=== PATIENT | male | born 1975 ===

== ENCOUNTER 2020-06-29 06:04 | Day surgery (SDC) | payer MEDICARE, SELFPAY ==
[2020-06-28 09:02] VITALS: BMI 38.2
[2020-06-28 11:45] VITALS: BMI 37.9
--- NOTE | 2020-06-28 13:53 | HO.ANESPROP2 ---
Documented by User: Maya Andrade 06/28/20 13:56 HPI - Anesthesia Eval Consult details Narrative: 45yo M for L Inguinal Hernia Repair PMFSH Past Medical History Medical History Allergic rhinitis Anxiety Chronic pain Fatty liver GERD (gastroesophageal reflux disease) High cholesterol HTN (hypertension) Liver hemangioma Obesity Opioid dependence Peripheral neuropathic pain Surgical History Surgical History History of back surgery Hx of hernia repair Hx of total shoulder replacement Social History Social History Advance Directives: No Advance Directives Information Provided: No Advance Directives on File: No Meds Allergies Allergy/AdvReac Type Severity Reaction Status Date / Time Iodinated Contrast Media Allergy Severe ANAPHYLAXIS Verified 06/29/20 06:28 [IV CONTRAST] ivp dye Allergy Severe Anaphylaxis Uncoded 06/28/20 11:56 Home Medications Medication Instructions Recorded Confirmed Type albuterol sulfate [Ventolin HFA] 2 puff INHALATION QID PRN 06/28/20 06/28/20 History buprenorphine-naloxone [Suboxone] 2 tab SUBLINGUAL DAILY 06/28/20 06/28/20 History docusate sodium [Colace] 100 mg PO BID 06/28/20 06/28/20 History hydrochlorothiazide 25 mg PO DAILY 06/28/20 06/28/20 History mometasone 2 spray INTRANASAL DAILY 06/28/20 06/28/20 History pravastatin 40 mg PO BEDTIME 06/28/20 06/28/20 History pregabalin [Lyrica] 75 mg PO BID 06/28/20 06/28/20 History trazodone 50 mg PO BEDTIME 06/28/20 06/28/20 History oxycodone 5 mg PO PRN 06/29/20 History Exam Exam Date and Time: June 28, 2020 1353 Height,Weight and Vital Signs: Height 5 ft 6 in Weight 106.594 kg Pertinent Lab Results Pertinent Lab Results: Laboratory Tests 10/14/19 10/14/19 09:58 09:58 WBC 6.7 Hgb 15.2 Hct 44.7 Plt Count 166 Sodium 141 Potassium 4.3 Chloride 103 BUN 14 Creatinine 1.03 Assessment and Plan Assessment Anesthesia Assessment: Chart Reviewed Documented by User: Whitney Randall 06/29/20 08:00 PMFSH Past Medical History Medical History Allergic rhinitis Anxiety Chronic pain Fatty liver GERD (gastroesophageal reflux disease) High cholesterol HTN (hypertension) Liver hemangioma Obesity Opioid dependence Peripheral neuropathic pain Surgical History Surgical History History of back surgery Hx of hernia repair Hx of total shoulder replacement Social History Social History Advance Directives: No Advance Directives Information Provided: No Advance Directives on File: No Meds Allergies Allergy/AdvReac Type Severity Reaction Status Date / Time Iodinated Contrast Media Allergy Severe ANAPHYLAXIS Verified 06/29/20 06:28 [IV CONTRAST] ivp dye Allergy Severe Anaphylaxis Uncoded 06/28/20 11:56 Home Medications Medication Instructions Recorded Confirmed Type albuterol sulfate [Ventolin HFA] 2 puff INHALATION QID PRN 06/28/20 06/28/20 History buprenorphine-naloxone [Suboxone] 2 tab SUBLINGUAL DAILY 06/28/20 06/28/20 History docusate sodium [Colace] 100 mg PO BID 06/28/20 06/28/20 History hydrochlorothiazide 25 mg PO DAILY 06/28/20 06/28/20 History mometasone 2 spray INTRANASAL DAILY 06/28/20 06/28/20 History pravastatin 40 mg PO BEDTIME 06/28/20 06/28/20 History pregabalin [Lyrica] 75 mg PO BID 06/28/20 06/28/20 History trazodone 50 mg PO BEDTIME 06/28/20 06/28/20 History oxycodone 5 mg PO PRN 06/29/20 History Exam Airway Mallampati Class: II TM Dist: >3cm Neck ROM: Full Loose/Missing/Broken Teeth: Yes Heart: RRR Lungs: cta Assessment and Plan Assessment Anesthesia Assessment: Anesthesia Plan Discussed and Chart Reviewed Final Anesthetic Review NPO: Yes ASA Class: II Final Preanesthetic Review: No Changes in Pt Med Stat, Meds/Allgs Chart Reviewed, Consent Obtained/Reviewed and Anes Risks/Benef Reviewed Patient Risk: Low Procedure Risk: Low Assessment/Block/Sedation in SS: Assess/Block/Sedation-SS Anesthetic Plan Anesthetic Plan: GA Disposition: Standard PACU
[2020-06-29] VITALS (10 sets, daily range): BP systolic 76–138; BP diastolic 44–79; PULSE 70–91; RESP 15–18; TEMP 36.2–37; O2SAT 93–98
[2020-06-29] MEDS: Lactated Ringers 1,000 ML 100 ML IVCONT (06:44)
[2020-06-29] MEDS: ceFAZolin Sodium/Dextrose,Iso 2 GM/50 ML PIGGYBACK IV (06:44)
--- NOTE | 2020-06-29 08:22 | P.BOP_ITS ---
Brief Operative Note Date of procedure: 06/29/20 Pre-op diagnosis: left inguinal hernia Post-op diagnosis: same Procedure: repair of left inguinal hernia w/ mesh Implants: mesh Surgeon: Jose Rafael Reyez MD Anesthesia: GLMA Foreign Service Teacher: Sherley Orellana Estimated blood loss (mL): 5 Pathology: none sent Condition: stable Disposition: PACU
[2020-06-29] MEDS: Acetaminophen 325 MG TABLET 650 MG PO (08:50)
[2020-06-29] MEDS: oxyCODONE HCl Immed Release 5 MG TABLET 10 MG PO (08:51)
--- NOTE | 2020-06-29 09:00 | OP_ITS ---
SURGEON: Jose Rafael Reyez MD INDICATIONS: The patient is a 45-year-old male with note of reducible mass in the left groin consistent with an inguinal hernia. In view of symptoms, he wanted to proceed with repair. He understood technique of repair with mesh. He is aware of the risks, benefits, and alternatives. PREOPERATIVE DIAGNOSIS: Left inguinal hernia. POSTOPERATIVE DIAGNOSIS: Left inguinal hernia, indirect. PROCEDURE PERFORMED: Repair of left inguinal hernia with mesh. ESTIMATED BLOOD LOSS: COMPLICATIONS: ANESTHESIA: ASSISTANTS: Sherley Orellana PA-C. SPECIMENS: DESCRIPTION OF PROCEDURE: He was brought to the operating room, placed supine on the table under general anesthesia via laryngeal mask airway. The left groin was prepped and draped in usual sterile fashion. A surgical time-out was done. The patient received cefazolin 2 g IV preoperatively. The planned line of incision was infiltrated with lidocaine 1%. A short imaginary line from anterior superior iliac spine to the pubic ramus was then used as an incision site. This incision on the skin was made using blade #15, it was carried down to full-thickness skin and subcutaneous fat down to the external oblique aponeurosis. We then proceeded to gently and bluntly dissect the external oblique aponeurosis until we were able to clearly see the external ring. I then proceeded to make incision on the external oblique aponeurosis using blade #15 and it was extended inferomedially to connect with the external ring. The edges of the external oblique aponeurosis were then grasped with hemostats. I bluntly dissected the underside of the aponeurosis to create a plane for our mesh. I then proceeded to bluntly dissect the spermatic cord and its contents using my index finger until I was able to pass a [place] drain around this. The [place] drain was used for traction. Examination of the cord revealed the fat containing hernia on the anteromedial aspect. I bluntly and gently dissected off the rest of the cord contents. I was able to visualize the vas deferens and accompanying vessels. I continued to separate the contents of the sac through the internal ring and this was reduced completely. I reinforced the internal ring with the plug. The plug was secured with Prolene 2-0 sutures to the shelving edge of the inguinal ligament laterally and internal oblique superomedially using the inner leaves. I then reinforced the floor of the canal with keyhole mesh. The tails of the mesh were passed around the cord at the level of the internal ring and was secured together with Prolene 2-0 sutures. I secured the mesh with Prolene 2-0 suture to the pubic ramus inferomedially, the internal oblique laterally as well as the shelving edge of the inguinal ligament laterally. We made certain that we were not catching the ilioinguinal nerve with the sutures. I removed the Daniel drain and observed for hemostasis. Once hemostasis was confirmed, proceeded to then close the external oblique aponeurosis with a running Dexon 2-0 stitch to re-create the external ring. The subcutaneous layer was reapposed with Dexon 3-0 interrupted sutures. Skin closure achieved with Dexon 4-0 subcuticular running stitch. Steri-Strips and dressings were applied. Incision was infiltrated with Marcaine 0.5% for postop analgesia. Steri-Strips and dressings were applied. The procedure was completed. The patient tolerated the procedure well. There were no complications noted. Initial and final counts of sponges and instruments were correct. Estimated blood loss was minimal. The patient was extubated without difficulty and transferred to recovery room with stable vital signs. MD KENN Jiménez/JYOTI / [id number] JEAN CLAUDE
[2020-06-29] MEDS: fentaNYL citrate/PF 100 MCG/2 ML VIAL 50 MCG IVPUSH (09:12)
--- NOTE | 2020-06-29 09:41 | HO.POSTANES ---
Post Anesthesia Evaluation Post Anesthesia Evaluation Vital Signs: Vital Signs Temp Pulse Resp BP Pulse Ox 06/29/20 09:23 98.6 F 81 17 123/74 98 06/29/20 09:15 82 17 127/68 06/29/20 09:12 17 06/29/20 09:00 75 17 120/71 96 06/29/20 08:45 82 18 97/55 L 06/29/20 08:40 70 15 97/55 L 93 06/29/20 08:35 71 18 90/48 L 93 06/29/20 08:34 70 17 105/52 L 06/29/20 08:30 98.6 F 72 16 76/44 L 96 06/29/20 06:23 97.1 F 91 18 138/79 97 Anesthesia: General LMA Mental Status: Awake Pain Control: Satisfactory Nausea/Vomiting: None Hydration: Adequate Anesthesia-Related Issues: No Anes. Related Issues
== END 2020-06-29 10:19 | disposition home or self-care (01) ==
PROVIDERS: PCP Internal Medicine Geriatric Medicine; Visit Provider Surgery
PROC: (CPT 49505; principal; 2020-06-29 07:30)
DX: K40.90 Unilateral inguinal hernia, without obstruction or gangrene, not specified as recurrent (principal); I10 Essential (primary) hypertension; K21.9 Gastro-esophageal reflux disease without esophagitis; K76.0 Fatty (change of) liver, not elsewhere classified; J30.9 Allergic rhinitis, unspecified; E78.00 Pure hypercholesterolemia, unspecified; F11.20 Opioid dependence, uncomplicated; G62.9 Polyneuropathy, unspecified; Z79.899 Other long term (current) drug therapy
CPT/HCPCS: 49505; C1781; J0690; J1100; J1885; J2405; J3010

== ENCOUNTER → 2020-07-12 11:07 | Outpatient (BNVA) | payer MEDICARE, SELFPAY | PROVIDERS: PCP Internal Medicine Geriatric Medicine; Visit Provider Surgery | DX: Z48.815 Encounter for surgical aftercare following surgery on the digestive system (principal) | CPT/HCPCS: 99212 ==

== ENCOUNTER 2020-10-06 16:29 | Outpatient (REF) | payer MEDICARE, SELFPAY | END 2020-10-06 16:30 | disposition home or self-care (01) | LOC: HO.LAB 16:29 | PROVIDERS: Visit Provider Internal Medicine | DX: Z20.822 Contact with and (suspected) exposure to COVID-19 (principal) | CPT/HCPCS: 36415; C9803; U0003 ==

== ENCOUNTER 2020-12-14 08:37 | Outpatient (REF) | payer MEDICARE, SELFPAY ==
--- NOTE | ~2020-12-14 | US_ITS ---
EXAMINATION: US ABDOMEN COMPLETE CLINICAL INFORMATION: Abdominal pain. COMPARISON: Ultrasound abdomen 10/14/2019. CT abdomen and pelvis 12/30/2018. Renal ultrasound 11/04/2018. TECHNIQUE: Real-time imaging of the abdominal viscera. FINDINGS: PANCREAS: Normal. ABDOMINAL AORTA: The proximal, mid, and distal segments are normal in caliber. INFERIOR VENA CAVA: Visualized portions are normal. LIVER: The liver is normal in size. The liver contour is normal. Liver echogenicity is diffusely increased areas are focal areas of decreased echogenicity adjacent to the gallbladder. No focal hepatic lesion. There is no intrahepatic biliary duct dilatation seen. GALLBLADDER: Normal. The gallbladder is physiologically distended without evidence of stones, sludge, polyps, wall thickening or pericholecystic fluid. COMMON BILE DUCT: Normal in caliber measuring 0.3 cm in diameter. RIGHT KIDNEY: Normal. No hydronephrosis. No renal calculi or focal parenchymal lesions. The kidney measures 11.5 cm in maximum dimension. LEFT KIDNEY: The kidney measures 10.7 cm in maximum dimension. 4 mm nonobstructing lower pole calculus. No hydronephrosis. SPLEEN: Normal. The spleen measures 10.7 cm in maximum dimension. FREE FLUID: None. US/US abdomen complete IMPRESSION: -Ultrasound findings suggestive of hepatic steatosis with focal fatty sparing adjacent to the gallbladder. Correlation with liver enzymes recommended. -Nonobstructing 4 mm left renal calculus.
== END 2020-12-14 08:38 | disposition home or self-care (01) ==
LOC: HO.US 08:37
PROVIDERS: PCP Internal Medicine Geriatric Medicine; Visit Provider Internal Medicine Geriatric Medicine
DX: R10.9 Unspecified abdominal pain (principal); Z79.899 Other long term (current) drug therapy
CPT/HCPCS: 76700

== ENCOUNTER 2021-04-12 14:30 | Outpatient (REF) | payer MEDICARE, SELFPAY ==
--- NOTE | ~2021-04-12 | US_ITS ---
EXAMINATION: US pelvic, LIMITED/FOLLOW UP CLINICAL INFORMATION: Lower abdominal pain. History of bilateral inguinal hernia repair. Rule out recurrent hernia. COMPARISON: Previous CT of the abdomen and pelvis December 2018 TECHNIQUE: Grayscale and color imaging of the bilateral inguinal regions using a linear transducer FINDINGS: No hernia is seen. No soft tissue fluid collection is seen. US/US pelvic limited IMPRESSION: No hernia is seen.
== END 2021-04-12 14:31 | disposition home or self-care (01) ==
LOC: HO.US 14:30
PROVIDERS: Visit Provider Nurse Practitioner Primary Care
DX: R10.30 Lower abdominal pain, unspecified (principal); K40.90 Unilateral inguinal hernia, without obstruction or gangrene, not specified as recurrent
CPT/HCPCS: 76857

== ENCOUNTER 2021-10-17 12:06 | Outpatient (REF) | payer MEDICARE, SELFPAY ==
--- NOTE | ~2021-10-17 | XR_ITS ---
EXAMINATION: XR SHOULDER, LEFT CLINICAL INFORMATION: Left shoulder pain. COMPARISON: Most recent left shoulder radiographs dated 06/29/2016. TECHNIQUE: AP, axillary, and scapular Y views of the left shoulder. FINDINGS: Left humeral head arthroplasty in expected anatomic alignment. No acute hardware or osseous fracture. No perihardware lucency to suggest loosening or infection. Resection of the distal clavicle and probable acromioplasty, unchanged. No osseous erosion. No abnormal soft tissue calcification. XR/XR shoulder LT 1V IMPRESSION: Left shoulder arthroplasty without evidence of complication.
== END 2021-10-17 12:07 | disposition home or self-care (01) ==
LOC: HO.HOSX 12:06
PROVIDERS: Visit Provider Orthopaedic Surgery
DX: R20.0 Anesthesia of skin (principal); Z96.612 Presence of left artificial shoulder joint
CPT/HCPCS: 73020; 99202

== ENCOUNTER 2021-10-26 09:33 | Outpatient (REF) | payer MEDICARE, SELFPAY ==
--- NOTE | ~2021-10-26 | XR_ITS ---
EXAMINATION: XR CHEST CLINICAL INFORMATION: SOB. Chest tightness 2-3 months COMPARISON: Chest 06/24/2019 TECHNIQUE: 2 views of the chest were obtained. FINDINGS: No significant abnormality is noted involving the heart, lungs, mediastinum, bony thorax or soft tissues. XR/XR chest 2V IMPRESSION: Unremarkable chest examination.
[2021-10-26 10:33] LABS: Hematocrit 42.3 % (42.0-52.0); Hemoglobin 14.5 g/dl (14.0-18.0); Mean Corpuscular HGB Conc 34.3 g/dl (31.0-36.0); Mean Corpuscular Hemoglobin 28.9 pg (27.0-33.0); Mean Corpuscular Volume 84.4 fL (80.0-98.0); Platelet Count 180 X10*3/uL (160-400); Red Blood Count 5.01 X10*6/uL (4.60-5.80); Red Cell Distribution Width 12.1 % (11.0-16.0); White Blood Count 6.8 X10*3/uL (4.8-10.8)
[2021-10-26 10:45] LABS: Estimated Average Glucose 114 mg/dL; Hemoglobin A1c % 5.6 %
[2021-10-26 11:07] LABS: Alanine Aminotransferase 36 U/L (0-40); Albumin Level 4.5 g/dL (3.5-5.0); Alkaline Phosphatase 81 U/L (39-117); Anion Gap 11 (12-20); Aspartate Amino Transferase 28 U/L (5-37); Bilirubin Direct 0.3 mg/dL (0.0-0.5); Bilirubin Total 0.8 mg/dL (0.0-1.0); Blood Urea Nitrogen 15 mg/dL (9-16); Calcium 9.7 mg/dL (8.4-10.2); Carbon Dioxide 32 mmol/L (22-29); Chloride 98 mmol/L (96-108); Cholesterol 198 mg/dL; Estimated Glomerular Filt Rate > 60; Glucose Random 99 mg/dL (60-115); HDL Cholesterol 34 mg/dL; LDL Cholesterol Calculated 136 mg/dl; Potassium 4.4 mmol/L (3.3-5.1); Sodium 137 mmol/L (135-145); Total Protein 7.6 g/dL (6.5-8.0); Triglycerides 141 mg/dL
== END 2021-10-26 09:34 | disposition home or self-care (01) ==
LOC: HO.LAB 09:33
PROVIDERS: PCP Internal Medicine Geriatric Medicine; Visit Provider Internal Medicine Geriatric Medicine
DX: E78.00 Pure hypercholesterolemia, unspecified (principal); R06.02 Shortness of breath; R73.9 Hyperglycemia, unspecified
CPT/HCPCS: 36415; 71046; 80048; 80061; 80076; 83036; 85027

== ENCOUNTER 2021-11-11 07:06 | Day surgery (SDC) | payer MEDICARE, SELFPAY ==
[2021-11-11 07:41] VITALS: BP 147/84; PULSE 84; RESP 18; TEMP 36.2; O2SAT 95; BMI 38.2
[2021-11-11] MEDS: Lactated Ringers 1,000 ML 80 ML IVCONT (07:45)
--- NOTE | 2021-11-11 08:45 | HO.ANESPROP2 ---
HPI - Anesthesia Eval Consult details Narrative: 46 M for EGD and colonoscopy REPLACED BY [facility] Active Problems Active Problems: All Active Problems (Updated 11/07/21 @ 10:38 by Renetta Westbrook RN) History of hernia repair (Acute) Left arm numbness (Acute) Status post left shoulder hemiarthroplasty (Acute) Left inguinal hernia (Acute) Past Medical History Medical History (Updated 11/07/21 @ 10:38 by Renetta Westbrook RN) Allergic rhinitis Anxiety Asthma Chronic pain Fatty liver GERD (gastroesophageal reflux disease) High cholesterol History of opioid abuse HTN (hypertension) Insomnia Left inguinal hernia Liver hemangioma Obesity Opioid dependence Peripheral neuropathic pain Family History Family history of problems with anesthesia: No Surgical History Surgical History (Updated 11/07/21 @ 10:35 by Renetta Westbrook RN) History of back surgery History of left inguinal hernia repair Hx of hernia repair Hx of total shoulder replacement History of Problems with Anesthesia: No Social History Social History Patient Tobacco Use Status: Never used Tobacco Use of substances other than those prescribed or required for medical reasons: No Are you DNR?: No Advance Directives: No Advance Directives Information Provided: Yes Nutrition Risks: No Nutritional Risk Meds Allergies Allergy/AdvReac Type Severity Reaction Status Date / Time Iodinated Contrast Media Allergy Severe ANAPHYLAXIS Verified 11/07/21 10:36 [IV CONTRAST] ivp dye Allergy Severe Anaphylaxis Uncoded 11/07/21 10:36 Home Medications Medication Instructions Recorded Confirmed Last Taken Type albuterol sulfate 90 mcg/actuation 2 puff INHALATION QID PRN 06/28/20 11/07/21 Unknown History aerosol inhaler (Ventolin HFA) buprenorphine 8 mg-naloxone 2 mg 2 tab SUBLINGUAL DAILY 06/28/20 11/07/21 Unknown History sublingual tablet docusate sodium 100 mg capsule 100 mg PO BID 06/28/20 11/07/21 Unknown History (Colace) hydrochlorothiazide 25 mg tablet 25 mg PO DAILY 06/28/20 11/07/21 Unknown History mometasone 50 mcg/actuation nasal 2 spray INTRANASAL DAILY 06/28/20 11/07/21 Unknown History spray pravastatin 40 mg tablet 40 mg PO BEDTIME 06/28/20 11/07/21 Unknown History pregabalin 75 mg capsule (Lyrica) 75 mg PO BID 06/28/20 11/07/21 Unknown History trazodone 50 mg tablet 50 mg PO BEDTIME 06/28/20 11/07/21 Unknown History acetaminophen 650 mg 2 tab PO Q8H PRN 11/07/21 11/07/21 Unknown History tablet,extended release (Arthritis Pain Relief (acetaminophen) ER) celecoxib 200 mg capsule 1 cap PO DAILY PRN 11/07/21 11/07/21 Unknown History duloxetine 30 mg capsule,delayed 1 cap PO DAILY 11/07/21 11/07/21 Unknown History release fluticasone propionate 50 1 spray INTRANASAL DAILY 11/07/21 11/07/21 Unknown History mcg/actuation nasal spray,suspension omeprazole 40 mg capsule,delayed 1 cap PO DAILY 11/07/21 11/07/21 Unknown History release Exam Exam Date and Time: November 11, 2021 0845 Height,Weight and Vital Signs: Height 5 ft 7 in Weight 110.677 kg Last Vital Signs Temp 97.1 F 11/11/21 07:41 Pulse 84 11/11/21 07:41 Resp 18 11/11/21 07:41 BP 147/84 H 11/11/21 07:41 Pulse Ox 95 11/11/21 07:41 Airway Mallampati Class: IV TM Dist: >3cm Neck ROM: Full Loose/Missing/Broken Teeth: Yes Heart: rrr Lungs: bl breath sounds Assessment and Plan Assessment Anesthesia Assessment: Anesthesia Plan Discussed and Chart Reviewed Final Anesthetic Review Family History of Problems with Anesthesia: No History of Problems with Anesthesia: No NPO: Yes ASA Class: III Final Preanesthetic Review: No Changes in Pt Med Stat, Meds/Allgs Chart Reviewed, Consent Obtained/Reviewed and Anes Risks/Benef Reviewed Patient Risk: Intermediate Procedure Risk: Intermediate Anesthetic Plan Anesthetic Plan: MAC: Disposition: Standard PACU
--- NOTE | 2021-11-11 09:49 | P.BOP_ITS ---
Brief Operative Note Date of Service: 11/11/21 Pre-op diagnosis: GERD, Screening Post-op diagnosis: other (Normal EGD, Colon polyp) Procedure: EGD, Colonoscopy to the cecum and TI with cold snare polypectomy Surgeon: Yousuf Ivan Anesthesia: MAC Was an Neurology Director used for this Procedure?: No Estimated blood loss (mL): 2.0 Pathology: other (A. Transverse colon polyp) Condition: stable Disposition: PACU
[2021-11-11 09:51] VITALS: BP 103/65; PULSE 83; RESP 17; TEMP 36.8; O2SAT 95
[2021-11-11 10:06] VITALS: BP 104/61; PULSE 72; RESP 17; TEMP 36.8; O2SAT 93
--- NOTE | 2021-11-11 10:59 | OP_ITS ---
SURGEON: Yousuf Ivan MD INDICATIONS: The patient presents for evaluation of gastroesophageal reflux and colorectal cancer screening. Full consent was obtained from him for this, including risks of bleeding and perforation. PREOPERATIVE DIAGNOSIS: POSTOPERATIVE DIAGNOSIS: PROCEDURE PERFORMED: Esophagogastroduodenoscopy and colonoscopy to the cecum, terminal ileum with cold snare polypectomy. ESTIMATED BLOOD LOSS: COMPLICATIONS: ANESTHESIA: Monitored anesthesia care. ASSISTANTS: SPECIMENS: PREOPERATIVE DIAGNOSES: Gastroesophageal reflux disease, colorectal cancer screening. POSTOPERATIVE DIAGNOSES: Gastroesophageal reflux disease, colorectal cancer screening, normal upper endoscopy, colon polyp, internal hemorrhoids. DESCRIPTION OF PROCEDURE: The patient was placed in the left lateral decubitus position. The Olympus video gastroscope was passed in the posterior oropharynx and upper esophagus under direct vision. The scope was passed slowly into the distal esophagus. The gastroesophageal junction appeared normal at 40 cm. There was no sign of any esophagitis nor Latif esophagus. The scope entered into the stomach. There was no appreciable hiatal hernia. The scope was advanced to pylorus and the duodenum was cannulated to the descending portion. The duodenum including the bulb appeared normal without mass or ulceration. The scope was withdrawn back to the stomach. The gastric antrum and body appeared normal with good peristalsis. The scope was retroflexed visualizing the proximal stomach carefully, which appeared normal, without any sign of mass or ulceration. Scope was straightened and withdrawn back in the esophagus. The esophageal mucosa appeared normal. The scope was withdrawn from the patient. He was turned around for colonoscopy. The digital rectal exam revealed no abnormalities. The Olympus video pediatric colonoscope was entered into the rectum and advanced easily to the cecum. Once in the cecum, I did identify normal-appearing cecal pouch with appendiceal orifice and a normal-appearing ileocecal valve. There was transillumination of light deep in the right lower quadrant. The terminal ileum was cannulated and appeared normal. Scope was withdrawn back in the colon. The entire cecum and ileocecal valve appeared normal. The scope was slowly withdrawn assessing all mucosal surfaces carefully. Preparation was excellent. In the transverse colon was an approximately 5 or 6 mm polyp, which was removed with cold snare polypectomy and recovered by suction. The polypectomy site appeared clean, without any sign of residual polyp nor significant bleeding. I did not visualize any other polyps, colitis, nor angiodysplasia. In the rectum, scope was retroflexed visualizing some small internal hemorrhoids, but no other pathology. The rectal mucosa appeared normal. The scope was straightened and withdrawn from the patient. He tolerated both procedures well and was returned to recovery area in stable condition. IMPRESSION: 1. Normal upper endoscopy. 2. Colon polyp, status post cold snare polypectomy. 3. Internal hemorrhoids. PLAN: The results of the Pathology will be checked. If this is a tubular adenoma, I would recommend a followup colonoscopy in 5 years. If it is only hyperplastic, I would recommend a followup colonoscopy in 10 years. He was advised not to use any aspirin and NSAIDs for 1 week. He was advised to continue his omeprazole for his reflux. He will see me on a p.r.n. basis. MD CHANEL Tran/JYOTI / [id number]
== END 2021-11-11 11:06 | disposition home or self-care (01) ==
PROVIDERS: PCP Internal Medicine Geriatric Medicine; Visit Provider Internal Medicine
PROC: (CPT 45385; principal; 2021-11-11 08:30)
DX: Z12.11 Encounter for screening for malignant neoplasm of colon (principal); Z83.71 Family history of colonic polyps; D12.3 Benign neoplasm of transverse colon; K64.8 Other hemorrhoids; K21.9 Gastro-esophageal reflux disease without esophagitis; J45.909 Unspecified asthma, uncomplicated; I10 Essential (primary) hypertension; E78.5 Hyperlipidemia, unspecified; Z79.51 Long term (current) use of inhaled steroids; Z79.899 Other long term (current) drug therapy; F11.20 Opioid dependence, uncomplicated; Z91.041 Radiographic dye allergy status
CPT/HCPCS: 45385; 43235; 88305

== ENCOUNTER 2022-02-07 10:52 | Outpatient (REF) | payer OTHER, SELFPAY ==
--- NOTE | ~2022-02-07 | MR_ITS ---
EXAMINATION: MR CERVICAL SPINE WITHOUT CONTRAST CLINICAL INFORMATION: Left upper extremity weakness. COMPARISON: There are no prior studies available comparison. TECHNIQUE: MRI of the cervical spine was obtained using routine sequences without contrast. FINDINGS: VERTEBRAL BODIES AND PARASPINAL SOFT TISSUES: There is a mild levoscoliosis, and there is mild reversal of the normal cervical lordosis. Intervertebral disc heights are maintained. The vertebral bodies have normal height and contour no fractures are demonstrated. Overall, marrow signal is homogenous. The regional soft tissues are unremarkable. CERVICOMEDULLARY JUNCTION AND VISUALIZED POSTERIOR FOSSA: The craniocervical and posterior fossa structures are normal. Accounting for artifact, spinal cord signal appears normal SPINAL LEVELS: C2-C3: The facet joints appear normal bilaterally. Posterior disc contour is normal. There is no spinal cord compression or central stenosis. The neural foramina are patent bilaterally. C3-C4: The facet joints appear normal. There is a shallow posterior disc protrusion with there is no cord compression or central stenosis. There are uncovertebral osteophytes and there is mild right foraminal narrowing. C4-C5: The facet joints appear normal bilaterally. Posterior disc contour is normal. There is no spinal cord compression or central stenosis. The neural foramina are patent bilaterally. C5-C6: The facet joints appear normal. There is a broad-based posterior disc protrusion which effaces CSF ventral to the spinal cord without cord compression or central stenosis. There is mild left foraminal narrowing. C6-C7: The facet joints appear normal bilaterally. Posterior disc contour is normal. There is no spinal cord compression or central stenosis. The neural foramina are patent bilaterally. C7-T1: The facet joints appear normal bilaterally. Posterior disc contour is normal. There is no spinal cord compression or central stenosis. The neural foramina are patent bilaterally. MR/MR cervical spine wo con IMPRESSION: 1. At C5-C6 there is a posterior disc protrusion without cord compression or central stenosis. There is mild left foraminal narrowing. 2. At C3-C4 there is a shallow posterior disc protrusion without cord compression or central stenosis. There is mild right foraminal narrowing.
== END 2022-02-07 10:53 | disposition home or self-care (01) ==
LOC: HO.MRI 10:52
PROVIDERS: Visit Provider Orthopaedic Surgery
DX: R20.0 Anesthesia of skin (principal)
CPT/HCPCS: 72141

== ENCOUNTER 2022-03-15 09:54 | Outpatient (REF) | payer OTHER, SELFPAY ==
--- NOTE | 2022-03-15 09:57 | EMG_ITS ---
HISTORY OF PRESENT ILLNESS: This is a 46-year-old man with bilateral upper extremity pain, numbness, and tingling with the left being worse than the right. PHYSICAL EXAMINATION: On examination, he is alert, oriented with normal intellectual functions. He has previously had a left carpal tunnel release. No Tinel or Phalen sign. IMPRESSION: Carpal tunnel syndrome. Nerve conduction EMG study: Early carpal tunnel syndrome on the right, otherwise normal study. Normal EMG of the left C5-T1 innervated muscles. MD CYNDY Wilde/JYOTI / [id number]
== END 2022-03-15 09:55 | disposition home or self-care (01) ==
LOC: HO.NEURO 09:54
PROVIDERS: Visit Provider Internal Medicine Geriatric Medicine
DX: M54.10 Radiculopathy, site unspecified (principal); R20.0 Anesthesia of skin
CPT/HCPCS: 95885; 95913

== ENCOUNTER → 2022-05-16 14:52 | Outpatient (BNVA) | payer OTHER, SELFPAY | PROVIDERS: PCP Internal Medicine Geriatric Medicine; Visit Provider Orthopaedic Surgery | DX: G56.01 Carpal tunnel syndrome, right upper limb (principal) | CPT/HCPCS: 99202 ==

== ENCOUNTER 2023-01-02 16:51 | Outpatient (REF) | payer OTHER, SELFPAY ==
--- NOTE | ~2023-01-02 | XR_ITS ---
EXAMINATION: XR ANKLE, RIGHT CLINICAL INFORMATION: Twisted right ankle COMPARISON: Right ankle 03/02/2017 TECHNIQUE: AP, lateral, and mortise views of the right ankle. FINDINGS: There is minimal lateral malleolar soft tissue swelling. Ankle mortise and subtalar joints are normal. The ununited ossification growth center anterior to distal tibia unchanged to 03/02/2017 exam. No acute fracture, dislocation or subluxation seen. XR/XR ankle RT min 3V IMPRESSION: Lateral malleolar soft tissue swelling likely ligamentous injury. No acute fracture or dislocation. 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 It is unchanged to previous right ankle x-ray 03/02/2017.
== END 2023-01-02 16:52 | disposition home or self-care (01) ==
LOC: HO.XRAY 16:51
PROVIDERS: Absent Provider Internal Medicine Geriatric Medicine; PCP Internal Medicine Geriatric Medicine; Visit Provider Family Medicine
DX: M25.571 Pain in right ankle and joints of right foot (principal)
CPT/HCPCS: 73610

== ENCOUNTER 2023-01-20 14:51 | Emergency (ER) | payer OTHER, SELFPAY ==
--- NOTE | ~2023-01-20 | XR_ITS ---
EXAMINATION: XR LUMBOSACRAL SPINE CLINICAL INFORMATION: Pain. Previous surgery. COMPARISON: None available. TECHNIQUE: Three views of the lumbosacral spine. FINDINGS: Bone alignment is normal. No fracture or dislocation. Mild degenerative spondylosis and disc space narrowing from T12-L1 to L2-L3. Paraspinal soft tissues are unremarkable. XR/XR lumbar spine 2-3V IMPRESSION: Degenerative changes of the proximal lumbar spine.
--- NOTE | 2023-01-20 14:59 | ED.GENADULT ---
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 Gabriel with intermittent chronic back pain since then which has been constant since October with no new injury or trauma presents to the ER with worsening back pain. No radiation of pain. No weakness/numbness/tingling of lower extremities. No numbness in the groin. No bowel or bladder incontinence. No fevers or chills. Patient is ambulatory into the emergency room. Patient reports he is taking ibuprofen, Tylenol, baclofen for pain with no relief. He is also on Suboxone. Related Data Home Medications Medication Instructions Recorded Confirmed albuterol sulfate 90 mcg/actuation 2 puff inhalation QID PRN 06/28/20 11/07/21 aerosol inhaler (Ventolin HFA) Shortness Of Breath Or Wheezing buprenorphine 8 mg-naloxone 2 mg 2 tab sublingual DAILY 06/28/20 11/07/21 sublingual tablet docusate sodium 100 mg capsule 100 mg PO BID 06/28/20 11/07/21 (Colace) hydrochlorothiazide 25 mg tablet 25 mg PO DAILY 06/28/20 11/07/21 mometasone 50 mcg/actuation nasal 2 spray intranasal DAILY 06/28/20 11/07/21 spray pravastatin 40 mg tablet 40 mg PO BEDTIME 06/28/20 11/07/21 pregabalin 75 mg capsule (Lyrica) 75 mg PO BID 06/28/20 11/07/21 acetaminophen 650 mg 2 tab PO Q8H PRN Pain 11/07/21 11/07/21 tablet,extended release (Arthritis Pain Relief (acetaminophen) ER) celecoxib 200 mg capsule 1 cap PO DAILY PRN Pain 11/07/21 11/07/21 duloxetine 30 mg capsule,delayed 1 cap PO DAILY 11/07/21 11/07/21 release fluticasone propionate 50 1 spray intranasal DAILY 11/07/21 11/07/21 mcg/actuation nasal spray,suspension omeprazole 40 mg capsule,delayed 1 cap PO DAILY 11/07/21 11/07/21 release Previous Rx's Medication Instructions Recorded cyclobenzaprine 10 mg tablet 10 mg PO TID PRN muscle spasm #15 01/20/23 tabs lidocaine 5 % topical patch 1 patch topical DAILY #30 ea 01/20/23 (Lidoderm) naproxen 500 mg tablet 500 mg PO BID PRN pain #30 tabs 01/20/23 Allergies Allergy/AdvReac Type Severity Reaction Status Date / Time Iodinated Contrast Media Allergy Severe ANAPHYLAXIS Verified 01/20/23 15:02 [IV CONTRAST] ivp dye Allergy Severe Anaphylaxis Uncoded 05/16/22 15:39 Review of Systems Review of Systems: Yes all other systems are reviewed and are negative Constitutional: Constitutional: Reports no additional constitutional complaints, Denies body ache(s), Denies chills, Denies fever(s), Denies headache(s) and Denies weakness Eyes: Eyes: Reports no additional eye complaints and Denies change in vision ENT: Reports system reviewed and no additional complaints, except as documented, Denies dizziness, Denies headache(s), Denies nasal congestion, Denies nasal discharge and Denies neck pain Cardiovascular: Cardiovascular: Reports no additional cardiovascular complaints, Denies chest pain, Denies leg edema and Denies dyspnea Respiratory: Respiratory: Reports no additional respiratory complaints, Denies cough and Denies dyspnea Gastrointestinal: Gastrointestinal: Reports no additional gastrointestinal complaints, Denies abdominal pain, Denies diarrhea, Denies nausea and Denies vomiting Genitourinary: Genitourinary: Denies urinary incontinence Musculoskeletal: Musculoskeletal: Reports no additional musculoskeletal complaints, Reports back pain, Denies arthralgias, Denies joint swelling, Denies neck pain, Denies numbness and Denies tingling Integumentary/Breasts: Skin/Breast: Reports system reviewed and no additional complaints, except as docu and Denies rash Neurologic: Reports system reviewed and no additional complaints, except as documented, Denies dizziness, Denies headache(s), Denies numbness, Denies tingling and Denies weakness [facility] Past Medical History Attestation statement: The following information was validated with the patient. Source: old records reviewed and nursing notes reviewed Medical History Allergic rhinitis Anxiety Asthma Chronic pain Fatty liver GERD (gastroesophageal reflux disease) High cholesterol History of opioid abuse HTN (hypertension) Insomnia Left inguinal hernia Liver hemangioma Obesity Opioid dependence Peripheral neuropathic pain Surgical History History of back surgery History of left inguinal hernia repair Hx of hernia repair Hx of total shoulder replacement Social History Social History Alcohol intake: former Patient Tobacco Use Status: Never used Tobacco Smoked in Last 30 Days: No Use of substances other than those prescribed or required for medical reasons: No Advance Directives: No Advance Directives Information Provided: Yes Current occupational status: disabled 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 Physical Exam ED Vital Signs: Vital Signs - 24 hr 01/20/23 15:00 01/20/23 15:59 Temperature 97 F 98.7 F Pulse Rate 87 80 Respiratory Rate 18 18 Blood Pressure 163/91 H 130/73 Pulse Oximetry 96 95 Oxygen Delivery Method Room Air Room Air BMI result Body Mass Index 40.3 Const General: cooperative, healthy appearing, comfortable and no acute distress Orientation/consciousness: patient oriented x3 Limitations: language barrier HENMT Head: Yes normal to inspection Ears: hearing grossly normal bilaterally Eyes General: appearance normal, both eyes and all related structures Pupils: Equal, round and reactive pupils present Neck Neck: Yes normal visual inspection Chest Chest palpation & inspection: normal inspection of the chest Resp Effort & Inspection: normal respiratory effort Cardio Peripheral pulses: Peripheral pulses 2+ throughout GI Inspection: Yes normal to inspection Palpation (GI): Soft to palpation General: Yes no CVA tenderness Back/Spine/Pelvis Other: Patient tenderness on palpation over the lumbar spine. No step-offs or deformities. Pain is worse with flexion and extension of the lumbar spine Back: no CVA tenderness Thoracic/Lumbar Spine: thoracic and lumbar spine normal to inspection Skin General skin exam: no rashes or lesions noted Neuro General: patient oriented x3 and moves all extremities Cranial nerves: Yes CN's II-XII intact bilaterally, Yes Equal, round and reactive pupils present, Yes Bilaterally intact EOM present, Yes Nystagmus not present and Yes Midline tongue present Cognition (Neuro): normal cognition Gait exam (Neuro): Normal gait present Motor exam (neuro): 5/5 motor strength present throughout Sensory Exam: Normal double simultaneous stimulation for sensation Deep tendon reflexes (DTR's): Right patellar reflex intensity grade: 2+ and Left patellar reflex intensity grade: 2+ Extrem General: Yes normal to inspection, Yes no pedal edema and Yes no calf tenderness Course Course Course Narrative: RME- 47 year old male presents for evaluation of lower back pain. Patient reports his pain has been worse over the last few days. Denies recent injury. He had lumbar surgery in 2011 after an accident. Denies any numbness, tingling, weakness, bladder or bowel issues. No improvement with physical therapy. Plan for x-ray of l spine. Reevaluation(s) Reevaluation #1: X-ray shows degenerative changes. Recommend patient follow up outpatient with his previous back surgeon and trauma primary care and continue physical therapy. Will send patient home with NSAIDs, muscle relaxants and medicated patches. Reviewed worrisome signs and symptoms of when to return to the emergency room. Comfortable plan for discharge home. Medications Administered Discontinued Medications Generic Name Dose Route Start Last Admin Trade Name Freq PRN Reason Stop Dose Admin Ketorolac Tromethamine 60 mg 01/20/23 16:11 01/20/23 16:28 Ketorolac Tromethamine 60 Mg/2 Ml Vial IM 01/20/23 16:12 60 mg ONCE ONE Administration Medical Decision Making Medical Decision Making [facility] Narrative: 47-year-old male here with acute on chronic back pain with no neurological deficits or red flag symptoms Patient with midline tenderness on exam. Will check x-rays Discussed with patient that he will likely need to follow-up with Dr. Jefferson (previous back surgeon) for furthr eval and possible MRI Differential Diagnosis Differential Diagnoses: The differential diagnosis associated with the presentation includes Disc herniation, lumbar radiculopathy Low concern for cauda equina, cord compression, epidural abscess, malignancy, osteomyelitis, renal colic, pyelonephritis, AAA Independent Interpretation I performed an independent interpretation of an: Plain X-Ray Interpretation: Independently reviewed the x-ray and agree with radiologist's report Radiology Impression Discussion of test interpretation with radiology: I have reviewed the radiologist's reading. Radiologist Impression: [address] [address] XRay Report Signed Patient: Jose Carlos Gay MR#: [id number] : 1975 Acct:[id number] Age/Sex: 47 / M ADM Date: 01/20/23 Loc: HO.ED Attending Dr: Ordering Physician: Alonzo Morley Date of Service: 01/20/23 Procedure(s): XR lumbar spine 2-3V Accession Number(s): [id number] cc: Alonzo Morley ~ EXAMINATION: XR LUMBOSACRAL SPINE CLINICAL INFORMATION: Pain. Previous surgery. COMPARISON: None available. TECHNIQUE: Three views of the lumbosacral spine. FINDINGS: Bone alignment is normal. No fracture or dislocation. Mild degenerative spondylosis and disc space narrowing from T12-L1 to L2-L3. Paraspinal soft tissues are unremarkable. XR/XR lumbar spine 2-3V IMPRESSION: Degenerative changes of the proximal lumbar spine. Discharge Plan Discharge Clinical Impression: Lumbar radiculopathy Patient Disposition: Home, Self-Care Instructions: Lumbar Radiculopathy (ED), Lower Back Exercises (ED) Additional Instructions: chacon radiograf?a muestra cambios degenerativos que vienen con la edad. Debe realizar un seguimiento con el paciente ambulatorio de la Dra. Jefferson, as? jose rafael con chacon atenci?n primaria. Es posible que quieran obtener mario resonancia magn?lurdes de chacon espalda. No hacemos resonancias magn?cesilia en la angel de emergencias. Sin levantar objetos pesados ??ni agacharse. Calentar o hielo seg?n sea necesario. Contin?e con freda medicamentos caseros. Estamos agregando algunos medicamentos adicionales para ayudar con el dolor your x-ray shows degenerative changes that come with age. You should follow-up with Dr. Jefferson outpatient as well as her primary care. They may want to obtain an MRI of your back. We do not do MRIs in the emergency room. No heavy lifting or bending. Heat or ice as needed. Continue your home medications. We are adding some additional medications to help with pain. Prescriptions: New cyclobenzaprine 10 mg tablet 10 mg PO TID PRN (Reason: muscle spasm) Qty: 15 0RF lidocaine [Lidoderm] 5 % adhesive patch,medicated 1 patch topical DAILY Qty: 30 0RF Rx Instructions: leave on most painful area for up to 12 hrs naproxen 500 mg tablet 500 mg PO BID PRN (Reason: pain) Qty: 30 0RF No Action pravastatin 40 mg Tablet 40 mg PO BEDTIME docusate sodium [Colace] 100 mg Capsule 100 mg PO BID mometasone 50 mcg/actuation [place],Non-Aerosol 2 spray INTRANASAL DAILY hydrochlorothiazide 25 mg Tablet 25 mg PO DAILY albuterol sulfate [Ventolin HFA] 90 mcg/actuation Hfa Aerosol Inhaler 2 puff INHALATION QID PRN (Reason: Shortness Of Breath Or Wheezing) buprenorphine-naloxone 8-2 mg Tablet, Sublingual 2 tab SUBLINGUAL DAILY pregabalin [Lyrica] 75 mg Capsule 75 mg PO BID omeprazole 40 mg capsule,delayed release(DR/EC) 1 cap PO DAILY acetaminophen [Arthritis Pain Relief (acetam)] 650 mg tablet extended release 2 tab PO Q8H PRN (Reason: Pain) fluticasone propionate 50 mcg/actuation spray,suspension 1 spray intranasal DAILY duloxetine 30 mg capsule,delayed release(DR/EC) 1 cap PO DAILY celecoxib 200 mg capsule 1 cap PO DAILY PRN (Reason: Pain) Referrals: Name,MD Bruno [Primary Care Provider] - 1 week Print Language: Citizen Of [place]
[2023-01-20 15:00] VITALS: BP 163/91; PULSE 87; RESP 18; TEMP 36.1; O2SAT 96; BMI 40.3
[2023-01-20 15:59] VITALS: BP 130/73; PULSE 80; RESP 18; TEMP 37.1; O2SAT 95
--- NOTE | 2023-01-20 16:19 | PC.NURSE ---
Pt resting on stretcher, airway open and patent, no obvious signs of distress, equal chest rise and fall, no difficulty/labored breathing. Pt a&ox4, skin color normal for ethnicity, warm, and dry. Lung sounds clr and equal bilaterally all mejia. No edema noted. Pt complaining of middle low back pain since October that is worsening. Pt able to ambulate. Area is unremarkable.
[2023-01-20] MEDS: Ketorolac Tromethamine 60 MG/2 ML VIAL IM (16:28)
[2023-01-20 17:16] VITALS: BP 128/80; PULSE 73; RESP 16; TEMP 37.4; O2SAT 94
== END 2023-01-20 17:21 | disposition home or self-care (01) ==
PROVIDERS: Emergency Provider Emergency Medicine; PCP Internal Medicine Geriatric Medicine
DX: M54.16 Radiculopathy, lumbar region (principal); I10 Essential (primary) hypertension; E78.5 Hyperlipidemia, unspecified; F11.20 Opioid dependence, uncomplicated; Z79.02 Long term (current) use of antithrombotics/antiplatelets; Z79.899 Other long term (current) drug therapy
CPT/HCPCS: 72100; 96372; 99284; J1885

== ENCOUNTER 2023-03-19 19:12 | Outpatient (REF) | payer OTHER, SELFPAY | END 2023-03-19 19:13 | disposition home or self-care (01) | LOC: HO.HHCLNP 19:12 | PROVIDERS: Visit Provider Internal Medicine | DX: R07.0 Pain in throat (principal) | CPT/HCPCS: 87070 ==

== ENCOUNTER 2023-03-20 11:11 | Emergency (ER) | payer OTHER, SELFPAY ==
[2023-03-20 11:16] VITALS: BP 156/87; PULSE 93; RESP 18; TEMP 36.8; O2SAT 96; BMI 42.0
--- NOTE | 2023-03-20 11:16 | ED_ITS ---
HPI - General Adult General Chief complaint: Ear Problems Stated complaint: L ear pain Time Seen by Provider: 03/20/23 11:22 Source: patient Mode of arrival: ambulatory Limitations: no limitations History of Present Illness HPI narrative: 47 yo male presents to the ER for evaluation of left ear pain for the last 2-3 days. He was given ear drops by his doctor to help soften the wax. He reports last night he did not sleep well due to discomfort and pressure in the left ear. He endorses decreased hearing in that side. No drainage. No URI symptoms. MD complaint: left ear pain and pressure Onset (ago): day(s) (2-3) Location: head Radiation: non-radiation Severity: moderate Quality: aching Pain Consistency: constant Relieving factors: none Exacerbating factors: other (laying on the left side) Associated symptoms: denies other symptoms Treatments prior to arrival: none Related Data Home Medications Medication Instructions Recorded Confirmed albuterol sulfate 90 mcg/actuation 2 puff inhalation QID PRN 06/28/20 11/07/21 aerosol inhaler (Ventolin HFA) Shortness Of Breath Or Wheezing buprenorphine 8 mg-naloxone 2 mg 2 tab sublingual DAILY 06/28/20 11/07/21 sublingual tablet docusate sodium 100 mg capsule 100 mg PO BID 06/28/20 11/07/21 (Colace) hydrochlorothiazide 25 mg tablet 25 mg PO DAILY 06/28/20 11/07/21 mometasone 50 mcg/actuation nasal 2 spray intranasal DAILY 06/28/20 11/07/21 spray pravastatin 40 mg tablet 40 mg PO BEDTIME 06/28/20 11/07/21 pregabalin 75 mg capsule (Lyrica) 75 mg PO BID 06/28/20 11/07/21 acetaminophen 650 mg 2 tab PO Q8H PRN Pain 11/07/21 11/07/21 tablet,extended release (Arthritis Pain Relief (acetaminophen) ER) celecoxib 200 mg capsule 1 cap PO DAILY PRN Pain 11/07/21 11/07/21 duloxetine 30 mg capsule,delayed 1 cap PO DAILY 11/07/21 11/07/21 release fluticasone propionate 50 1 spray intranasal DAILY 11/07/21 11/07/21 mcg/actuation nasal spray,suspension omeprazole 40 mg capsule,delayed 1 cap PO DAILY 11/07/21 11/07/21 release Previous Rx's Medication Instructions Recorded cyclobenzaprine 10 mg tablet 10 mg PO TID PRN muscle spasm #15 01/20/23 tabs lidocaine 5 % topical patch 1 patch topical DAILY #30 ea 01/20/23 (Lidoderm) naproxen 500 mg tablet 500 mg PO BID PRN pain #30 tabs 01/20/23 Allergies Allergy/AdvReac Type Severity Reaction Status Date / Time Iodinated Contrast Media Allergy Severe ANAPHYLAXIS Verified 01/20/23 15:02 [IV CONTRAST] ivp dye Allergy Severe Anaphylaxis Uncoded 05/16/22 15:39 Review of Systems Review of Systems: Yes all other systems are reviewed and are negative [facility] Past Medical History Medical History Allergic rhinitis Anxiety Asthma Chronic pain Fatty liver GERD (gastroesophageal reflux disease) High cholesterol History of opioid abuse HTN (hypertension) Insomnia Left inguinal hernia Liver hemangioma Obesity Opioid dependence Peripheral neuropathic pain Surgical History History of back surgery History of left inguinal hernia repair Hx of hernia repair Hx of total shoulder replacement Social History Social History Alcohol intake: former Patient Tobacco Use Status: Never used Tobacco Advance Directives: No Current occupational status: disabled 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 Oriented X3. No acute distress. HEENT: normal external inspection. right TM normal with small amount of cerumen in right EAC. left EAC impacted with cerumen CVS: Normal heart rate and rhythm. Pulses normal. Respiratory: No respiratory distress. Skin: Skin warm and dry. Normal skin color. Normal skin turgor. No rashes. Extremities: normal inspection x4 Neuro: Oriented X 3. No motor deficit. No sensory deficit. Course Course Course Narrative: This is an RME: Additional HPI, ROS, PE not included below will be deferred to primary provider. Patient is a 47 year old male with a PMH of carpal tunnel of the right wrist presenting with left ear pain and muffled hearing for a few days. Patient reports using drops for his ears yesterday but they are not working. Patient denies being given oral antibiotics. Patient denies fever, chills, night sweats, nausea, vomiting, headache, vision changes, numbness, tingling. On exam, impacted left ear canal. Plan: [facility] Medications Administered Discontinued Medications Generic Name Dose Route Start Last Admin Trade Name Nikolaiq PRN Reason Stop Dose Admin Docusate Sodium 100 mg 03/20/23 11:19 03/20/23 11:35 Docusate Sodium 100 Mg/10 Ml Liquid PO 03/20/23 11:20 100 mg ONCE ONE Administration Procedures Ear Wax Removal Left Ear: Cerumenolytic Used: Colace Results: Re-examined: cerumen removed completely TM Examination: TM(s) intact, normal appearance Ear Canal Exam: atraumatic Patient Tolerated Procedure: well Complications: no problems Technique: ear canal irrigated and ear canal curetted Medical Decision Making Medical Decision Making MDM Narrative: 47 yo male presenting with left ear pain and pressure due to cerumen impaction. successful removal w/ irrigation and curette. symptomatic improvement. TM visualized and was normal, no infection or perforation. stable for d/c home. Differential Diagnosis Differential Diagnoses: The differential diagnosis associated with the presentation includes otitis media, otitis externa, impacted cerumen, TM perforation External Record Review External record reviewed: Prior outpatient labs Prescription Management I considered prescription management with: Antibiotic (however no evidence of inner or outer ear infection) Critical Care Time Critical Care Time Critical Care Time: No Discharge Plan Discharge Clinical Impression: Cerumen impaction Patient Disposition: Home, Self-Care Instructions: Carbamide Peroxide (Into the ear) Additional Instructions: use the prescribed ear drops as directed by your doctor Prescriptions: No Action pravastatin 40 mg Tablet 40 mg PO BEDTIME docusate sodium [Colace] 100 mg Capsule 100 mg PO BID mometasone 50 mcg/actuation [place],Non-Aerosol 2 spray INTRANASAL DAILY hydrochlorothiazide 25 mg Tablet 25 mg PO DAILY albuterol sulfate [Ventolin HFA] 90 mcg/actuation Hfa Aerosol Inhaler 2 puff INHALATION QID PRN (Reason: Shortness Of Breath Or Wheezing) buprenorphine-naloxone 8-2 mg Tablet, Sublingual 2 tab SUBLINGUAL DAILY pregabalin [Lyrica] 75 mg Capsule 75 mg PO BID omeprazole 40 mg capsule,delayed release(DR/EC) 1 cap PO DAILY acetaminophen [Arthritis Pain Relief (acetam)] 650 mg tablet extended release 2 tab PO Q8H PRN (Reason: Pain) fluticasone propionate 50 mcg/actuation spray,suspension 1 spray intranasal DAILY duloxetine 30 mg capsule,delayed release(DR/EC) 1 cap PO DAILY celecoxib 200 mg capsule 1 cap PO DAILY PRN (Reason: Pain) cyclobenzaprine 10 mg tablet 10 mg PO TID PRN (Reason: muscle spasm) Qty: 15 0RF lidocaine [Lidoderm] 5 % adhesive patch,medicated 1 patch topical DAILY Qty: 30 0RF Rx Instructions: leave on most painful area for up to 12 hrs naproxen 500 mg tablet 500 mg PO BID PRN (Reason: pain) Qty: 30 0RF Interventions: ED Discharge Assessment Last Done: 03/20/23 12:04 Discharge Date/Time: 03/20/23 12:04
[2023-03-20] MEDS: Docusate Sodium 100 MG/10 ML LIQUID PO (11:35)
--- NOTE | 2023-03-20 11:40 | PC.NURSE ---
pt medicated per FREDDIE apporx 2mls instilled into left ear canal dwelling for 15 min
== END 2023-03-20 12:04 | disposition home or self-care (01) ==
PROVIDERS: Emergency Provider Emergency Medicine Emergency Medical Services; PCP Internal Medicine Geriatric Medicine
DX: H61.22 Impacted cerumen, left ear (principal); I10 Essential (primary) hypertension; Z79.899 Other long term (current) drug therapy
CPT/HCPCS: 69210; 99282; 99283

== ENCOUNTER 2023-09-19 11:19 | Outpatient (REF) | payer OTHER, SELFPAY ==
--- NOTE | ~2023-09-19 | XR_ITS ---
EXAMINATION: XR KNEE, RIGHT CLINICAL INFORMATION: Reason for Exam Chronic anterior right knee pain COMPARISON: Knee radiographs 06/13/2019 TECHNIQUE: 3 views of the knee FINDINGS: No acute fracture or dislocation. Mild osteoarthritis of the knee with borderline loss of medial compartment joint space unchanged. Trace suprapatellar joint effusion. Soft tissues are unremarkable. XR/XR knee RT 3V IMPRESSION: * No acute osseous abnormality. * Mild degenerative changes of the knee. Trace suprapatellar joint effusion.
== END 2023-09-19 11:20 | disposition home or self-care (01) ==
LOC: HO.XRAY 11:19
PROVIDERS: PCP Internal Medicine Geriatric Medicine; Visit Provider Internal Medicine Geriatric Medicine
DX: M25.561 Pain in right knee (principal)
CPT/HCPCS: 73562

== ENCOUNTER 2023-10-26 09:57 | Outpatient (REF) | payer OTHER, SELFPAY ==
[2023-10-26 11:03] LABS: MANUAL DIFF FLAG NO
[2023-10-26 11:35] LABS: Alanine Aminotransferase 30 U/L (0-40); Albumin Level 4.3 g/dL (3.5-5.0); Alkaline Phosphatase 78 U/L (39-117); Anion Gap 12 (12-20); Aspartate Amino Transferase 31 U/L (5-37); Bilirubin Total 0.6 mg/dL (0.0-1.0); Blood Urea Nitrogen 18 mg/dL (9-16); Calcium 9.4 mg/dL (8.4-10.2); Carbon Dioxide 28 mmol/L (22-29); Chloride 103 mmol/L (96-108); Estimated Glomerular Filt Rate > 60; Glucose Random 93 mg/dL (60-115); Potassium 4.3 mmol/L (3.3-5.1); Sodium 139 mmol/L (135-145); Total Protein 7.8 g/dL (6.5-8.0)
[2023-10-26 12:05] LABS: Basophils Absolute Auto 0.1 X10*3/uL (0.0-0.2); Basophils Percent Auto 0.8 % (0-2); Eosinophils Absolute Auto 0.2 X10*3/uL (0.0-0.4); Hemoglobin 14.4 g/dl (14.0-18.0); Imm Gran Abs Auto 0.05 X10*3/uL (0.00-0.03); Imm Gran Pct Auto 0.8 % (0.0-0.4); Lymphocytes Absolute Auto 1.7 X10*3/uL (1.2-4.9); Lymphocytes Percent Auto 26.1 % (20-40); Mean Corpuscular HGB Conc 33.5 g/dl (31.0-36.0); Mean Corpuscular Hemoglobin 28.7 pg (27.0-33.0); Mean Corpuscular Volume 85.8 fL (80.0-98.0); Mean Platelet Volume 11.2 fL (9.4-12.4); Monocytes Absolute Auto 0.6 X10*3/uL (0.1-1.2); Monocytes Percent Auto 9.9 % (2-11); Neutrophils Absolute Auto 3.8 x10*3/uL (2.0-8.3); Neutrophils Percent Auto 59.4 % (45-73); Platelet Count 194 X10*3/uL (160-400); Red Blood Count 5.01 X10*6/uL (4.60-5.80); Red Cell Distribution Width 12.4 % (11.0-16.0); White Blood Count 6.4 X10*3/uL (4.8-10.8)
== END 2023-10-26 09:58 | disposition home or self-care (01) ==
LOC: HO.HHCL 09:57
PROVIDERS: Visit Provider Internal Medicine Geriatric Medicine
DX: R12 Heartburn (principal)
CPT/HCPCS: 36415; 80053; 85025

== ENCOUNTER 2023-11-13 16:28 | Outpatient (REF) | payer OTHER, SELFPAY | END 2023-11-13 16:29 | disposition home or self-care (01) | LOC: HO.HHCLNP 16:28 | PROVIDERS: Visit Provider Internal Medicine Geriatric Medicine | DX: R12 Heartburn (principal) | CPT/HCPCS: 87338 ==

== ENCOUNTER 2024-04-08 14:20 | Outpatient (REF) | payer OTHER, SELFPAY ==
--- NOTE | ~2024-04-08 | XR_ITS ---
EXAMINATION: XR ANKLE, RIGHT CLINICAL INFORMATION: Chronic right ankle pain COMPARISON: Right ankle x-ray on 01/02/2023 TECHNIQUE: AP, lateral, and mortise views of the right ankle. FINDINGS: BONES: Bony structures are intact. Persistent tiny loose bone body is seen anterior to distal right tibia. There is no focal bone destruction or periosteal reaction seen. JOINTS: Alignment of joints is normal. SOFT TISSUE: Soft tissue is normal. No radiopaque foreign body or abnormal air collection is seen. XR/XR ankle RT min 3V IMPRESSION: 1. Unchanged unfused secondary ossification center anterior to the distal right tibia. 2. No fracture or dislocation or signs of osteomyelitis are found.
--- NOTE | ~2024-04-08 | XR_ITS ---
EXAMINATION: XR ANKLE, LEFT CLINICAL INFORMATION: Chronic left ankle pain and swelling COMPARISON: Left ankle x-ray on 07/09/2017 TECHNIQUE: AP, lateral, and mortise views of the left ankle. FINDINGS: BONES: Bony structures are intact. There is no focal bone destruction or periosteal reaction seen. JOINTS: Alignment of joints is normal. SOFT TISSUE: Soft tissue is normal. No radiopaque foreign body or abnormal air collection is seen. XR/XR ankle LT min 3V IMPRESSION: 1. Unchanged Normal x-rays of left ankle. No fracture or dislocation or signs of osteomyelitis are found.
== END 2024-04-08 14:21 | disposition home or self-care (01) ==
LOC: HO.HHCX 14:20
PROVIDERS: Visit Provider Internal Medicine Geriatric Medicine
DX: M25.572 Pain in left ankle and joints of left foot (principal); M25.571 Pain in right ankle and joints of right foot; M25.471 Effusion, right ankle; M25.472 Effusion, left ankle; R60.0 Localized edema; I10 Essential (primary) hypertension
CPT/HCPCS: 73610

== ENCOUNTER 2024-04-30 10:52 | Outpatient (REF) | payer OTHER, SELFPAY ==
[2024-04-30 13:17] LABS: MANUAL DIFF FLAG NO
[2024-04-30 13:28] LABS: Basophils Absolute Auto 0.1 X10*3/uL (0.0-0.2); Basophils Percent Auto 0.8 % (0-2); Eosinophils Absolute Auto 0.3 X10*3/uL (0.0-0.4); Eosinophils Percent Auto 4.1 % (0-4); Hematocrit 42.5 % (42.0-52.0); Hemoglobin 14.4 g/dl (14.0-18.0); Imm Gran Abs Auto 0.05 X10*3/uL (0.00-0.03); Imm Gran Pct Auto 0.8 % (0.0-0.4); Lymphocytes Absolute Auto 1.5 X10*3/uL (1.2-4.9); Lymphocytes Percent Auto 23.6 % (20-40); Mean Corpuscular HGB Conc 33.9 g/dl (31.0-36.0); Mean Corpuscular Hemoglobin 29.1 pg (27.0-33.0); Mean Corpuscular Volume 85.9 fL (80.0-98.0); Mean Platelet Volume 11.2 fL (9.4-12.4); Monocytes Absolute Auto 0.7 X10*3/uL (0.1-1.2); Monocytes Percent Auto 10.2 % (2-11); Neutrophils Absolute Auto 3.9 x10*3/uL (2.0-8.3); Neutrophils Percent Auto 60.5 % (45-73); Platelet Count 188 X10*3/uL (160-400); Red Blood Count 4.95 X10*6/uL (4.60-5.80); Red Cell Distribution Width 12.6 % (11.0-16.0); White Blood Count 6.4 X10*3/uL (4.8-10.8)
[2024-04-30 13:49] LABS: Alanine Aminotransferase 30 U/L (0-40); Albumin Level 4.3 g/dL (3.5-5.0); Alkaline Phosphatase 77 U/L (39-117); Anion Gap 11 (12-20); Aspartate Amino Transferase 27 U/L (5-37); Bilirubin Direct 0.1 mg/dL (0.0-0.5); Bilirubin Total 0.5 mg/dL (0.0-1.0); Blood Urea Nitrogen 14 mg/dL (9-16); C Reactive Protein 0.16 mg/dL (< or = 0.50); Calcium 9.6 mg/dL (8.4-10.2); Carbon Dioxide 27 mmol/L (22-29); Chloride 102 mmol/L (96-108); Estimated Glomerular Filt Rate > 60; Glucose Random 101 mg/dL (60-115); Potassium 4.2 mmol/L (3.3-5.1); Sodium 136 mmol/L (135-145); Total Protein 7.4 g/dL (6.5-8.0)
[2024-04-30 14:02] LABS: Rheumatoid Factor < 13.0 IU/mL (<15.0)
[2024-04-30 14:09] LABS: Erythrocyte Sedimentation Rate 8 MM/HR (0-15)
[2024-05-01 08:05] LABS: HIV AB/AG Nonreactive (Nonreactive); HIV Num 1 0.08 S/CO (0.00-0.99); ~HepC Num1 0.18 S/CO (0.00-0.79); ~Hepatitis C Antibody Nonreactive (Nonreactive)
[2024-05-01 08:23] LABS: Syphilis Screen Nonreactive (Nonreactive)
[2024-05-03 00:33] LABS: TS Negative Control Passed; TS Panel A 1; TS Panel B 0; TS Positive Control Passed; TSpotTB Negative (Negative)
[2024-05-06 20:08] LABS: Anti Nuclear Antibody Screen NEGATIVE (NEGATIVE)
== END 2024-04-30 10:53 | disposition home or self-care (01) ==
LOC: HO.HHCL 10:52
PROVIDERS: Referring Provider Emergency Medicine; Visit Provider Internal Medicine Geriatric Medicine
DX: Z11.4 Encounter for screening for human immunodeficiency virus [HIV] (principal); F11.20 Opioid dependence, uncomplicated; M25.473 Effusion, unspecified ankle; M25.50 Pain in unspecified joint; I10 Essential (primary) hypertension
CPT/HCPCS: 36415; 80053; 80076; 82248; 85025; 85652; 86038; 86140; 86431; 86481; 86780; 86803; 87389

== ENCOUNTER 2024-06-24 08:57 | Outpatient (REF) | payer OTHER, SELFPAY | END 2024-06-24 08:58 | disposition home or self-care (01) | LOC: HO.US 08:57 | PROVIDERS: PCP Internal Medicine Geriatric Medicine; Visit Provider Internal Medicine Geriatric Medicine | DX: R10.11 Right upper quadrant pain (principal) | CPT/HCPCS: 76700 ==

== ENCOUNTER 2025-03-18 16:08 | Outpatient (REF) | payer OTHER, SELFPAY ==
--- NOTE | ~2025-03-18 | XR_ITS ---
EXAMINATION: XR KNEE, RIGHT CLINICAL INFORMATION: R knee pain COMPARISON: None available. TECHNIQUE: Four views of the right knee. FINDINGS: No fracture or joint effusion. Alignment is anatomic. Joint spaces are maintained. No abnormal soft tissue calcification. XR/XR knee RT 3V IMPRESSION: Normal right knee. Electronically signed by: Thad Collins MD 03/18/2025 04:36 PM EDT
--- OUTSIDE RECORDS SUMMARY | 2025-03-18 15:20 | XMS_ITS | Encounter Summary ---
Author Organization [employer] Address [address] [place] [address] Care Team Providers Care Cook Helper Meat Name Role Phone Name, Bruno BELTRAN Primary Care Provider [phone] Reason for Visit * Reason Comments Knee Pain Encounter Details Date Type Department Care Team (Late st Contact Info) Description 03/18/2025 3:20 PM EDT Office Visit [facility] [address], [place] [id number] Acute pain of right knee (Primary Dx); Dietary counseling; Exercise counseling; Class 2 severe obesity due to excess calories with serious comorbidity and body mass index (BMI) of 39.0 to 39.9 in adult (CMS/HCC); Right knee pain, unspecified chronicity Social History Tobacco Use Types Packs/Day Years Used Date Smoking Tobacco: Never Smokeless Tobacco: Never Alcohol Use Standard Drinks/Week Comments Not Currently 0 (1 standard drink = 0.6 oz pur e alcohol) Depression Answer Date Recorded Patient Health Questionnaire-9 Score 2 02/03/2025 Patient Health Questionnaire-9 Score 2 02/03/2025 Last PHQ-9: Questionnaire Data Not on file 0 02/03/2025 Housing Stability Answer Date Recorded What is your housing situation today? Not on krishna e 10/14/[address] you li ve. Do you have problems with any of the following? None of the above 10/14/2024 Food Insecurity Answer Date Recorded Within the past 12 months, y ou worried that your food would run out before you got money to buy more: Never True 10/14/2024 Within the past 12 months,th e food you bought just didn't last and you didn't have enough money to get more: Never True 12/2024 Transportation Answer Date Recorded In the past 12 months, has l ack of transportation kept you from medical appts, meetings, work or from getting things needed for daily living? No 10/14/2024 Utilities Answer Date Recorded In the past 12 months, has t he electric, gas, oil or water company threatened to shut off services in your home? No 10/14/2024 Depression Answer Date Recorded Patient Health Questionnaire-2 Score 0 02/03/2025 Internet Access Answer Date Recorded Internet Access Q1 Yes 10/14/2024 Internet Access Q2 Not on file 10/14/2024 Sex and Gender Information Value Date Recorded Sex Assigned at Male 07/10/2022 10:24 AM EDT Legal Sex Male 10:24 AM EDT Gender Identity Male 07/10/2022 10:24 AM EDT Sexual Orientation Straight 07/10/2022 10 :24 AM EDT documented as of this encounter Last Filed Vital Signs Vital Sign Reading Time Taken Comments Blood Pressure 146/84 03/18/2025 3:10 PM EDT Pulse 90 03/18/2025 3:10 PM EDT Temperature 36.7 C (98.1 F) 03/18/2025 3:10 PM EDT Respiratory Rate 18 03/18/2025 3:10 PM EDT Oxygen Saturation 96% 03/18/2025 3:10 PM EDT Inhaled Oxygen Concentration - - Weight 109 kg (240 lb) 03/18/2025 3:10 PM EDT Height - - Body Mass Index 39.94 02/03/2025 1:01 PM EDT documented in this encounter Plan of Treatment Upcoming Encounters Date Type Department Care Team (Late st Contact Info) Description 03/31/2025 1:15 PM EDT Office Visit [facility] [address] [place] [address] James Clemons MD [address] [place] [address] 04/03/2025 1:00 PM EDT Office Visit [facility] [address] [place] [address] Jud Ham [address] [place] [address] Scheduled Orders Name Type Priority Associated Diagnoses Orde r Schedule XR Knee 3 Views Right Imaging Routine Acute pain of right knee Expected: 03/18/2025, Expires: 03/18/2026 documented as of this encounter Visit Diagnoses Diagnosis Acute pain of right knee- Primary Dietary counseling Dietary surveillance and counseling Exercise counseling Class 2 severe obesity due to excess calories with serious comorbidity and body mass index (BMI) of 39.0 to 39.9 in adult ([facility]) Right knee pain, unspecified chronicity documented in this encounter Additional Health Concerns Assessment Noted Time PHQ-9 Depression Total Score: 2 02/04/20 25 1:17 PM EDT documented as of this encounter Care Teams Cook Helper Meat Relationship Specialty Start Date End Date Name, MD Bruno [address] [place] [address] PCP - General Family Medicine 11/02/15 documented as of this encounter
== END 2025-03-18 16:09 | disposition home or self-care (01) ==
LOC: HO.HHCX 16:08
PROVIDERS: Visit Provider General Practice
DX: M25.561 Pain in right knee (principal)
CPT/HCPCS: 73562

== ENCOUNTER → 2025-03-18 16:09 | Outpatient (BNV) | payer OTHER, SELFPAY | PROVIDERS: Visit Provider Radiology Diagnostic Radiology | DX: M25.561 Pain in right knee (principal) | CPT/HCPCS: 73562 ==

== ENCOUNTER 2025-03-27 14:48 | Emergency (ER) | payer OTHER, SELFPAY ==
--- NOTE | ~2025-03-27 | XR_ITS ---
EXAMINATION: XR KNEE, RIGHT CLINICAL INFORMATION: Right knee pain COMPARISON: None available. TECHNIQUE: Four views of the right knee. FINDINGS: No fracture or joint effusion. Alignment is anatomic. Joint spaces are maintained. No abnormal soft tissue calcification. XR/XR knee RT 4V IMPRESSION: Unremarkable right knee Electronically signed by: Layton Roland MD 03/27/2025 04:06 PM EDT RP
--- NOTE | ~2025-03-27 | US_ITS ---
EXAMINATION: US TRIPLEX LOWER EXTREMITY, RIGHT CLINICAL INFORMATION: Posterior knee and calf pain. COMPARISON: None available. TECHNIQUE: Color-flow triplex imaging with spectral analysis and compression Doppler were performed on the right lower extremity. FINDINGS: Respiratory variation, normal compression and augmented flow are noted throughout the right lower extremity. The visualized common femoral vein, superficial femoral vein, profunda femoral vein, popliteal vein and midcalf peroneal and posterior tibial venous segments show no evidence of deep venous thrombosis. There is a Mcdaniel's cyst measuring 6.6 x 2.4 x 4.3 cm. US/US venous duplex LE RT IMPRESSION: 1. No evidence of deep venous thrombosis involving the right lower extremity. 2. Mcdaniel's cyst in the right popliteal fossa measuring 6.6 x 2.4 x 4.2 cm. Electronically signed by: Thad Collins MD 03/27/2025 04:25 PM EDT
[2025-03-27 14:55] VITALS: BP 150/73; PULSE 86; RESP 18; TEMP 36.3; O2SAT 96; BMI 39.9
--- NOTE | 2025-03-27 15:01 | ED.GENADULT ---
HPI - General Adult General Chief complaint: Extremity Injury, Lower Stated complaint: right knee pain Time Seen by Provider: 03/27/25 15:02 Source: patient Mode of arrival: ambulatory Limitations: no limitations History of Present Illness ED Provider: Jonathan Sheikh HPI narrative: 49 yold male with pmh of carpal tunnel syndomre, and left inwuinal hernia presents to the ED for right anterior and posterior knee pain without any trauma. patient denies any chest pain, shortness of breath, fever, or chills. Related Data Home Medications ?Medication ?Instructions ?Recorded ?Confirmed albuterol sulfate 90 mcg/actuation 2 puff inhalation QID PRN 06/28/20 11/07/21 aerosol inhaler (Ventolin HFA) Shortness Of Breath Or Wheezing buprenorphine 8 mg-naloxone 2 mg 2 tab sublingual DAILY 06/28/20 11/07/21 sublingual tablet docusate sodium 100 mg capsule 100 mg PO BID 06/28/20 11/07/21 (Colace) hydrochlorothiazide 25 mg tablet 25 mg PO DAILY 06/28/20 11/07/21 mometasone 50 mcg/actuation nasal 2 spray intranasal DAILY 06/28/20 11/07/21 spray pravastatin 40 mg tablet 40 mg PO BEDTIME 06/28/20 11/07/21 pregabalin 75 mg capsule (Lyrica) 75 mg PO BID 06/28/20 11/07/21 acetaminophen 650 mg 2 tab PO Q8H PRN Pain 11/07/21 11/07/21 tablet,extended release (Arthritis Pain Relief (acetaminophen) ER) celecoxib 200 mg capsule 1 cap PO DAILY PRN Pain 11/07/21 11/07/21 duloxetine 30 mg capsule,delayed 1 cap PO DAILY 11/07/21 11/07/21 release fluticasone propionate 50 1 spray intranasal DAILY 11/07/21 11/07/21 mcg/actuation nasal spray,suspension omeprazole 40 mg capsule,delayed 1 cap PO DAILY 11/07/21 11/07/21 release Previous Rx's ?Medication ?Instructions ?Recorded cyclobenzaprine 10 mg tablet 10 mg PO TID PRN muscle spasm #15 01/20/23 tabs lidocaine 5 % topical patch 1 patch topical DAILY #30 ea 01/20/23 (Lidoderm) naproxen 500 mg tablet 500 mg PO BID PRN pain #30 tabs 05/13/23 naproxen 500 mg tablet 500 mg PO BID PRN pain #14 tabs 03/27/25 Allergies Allergy/AdvReac Type Severity Reaction Status Date / Time Iodinated Contrast Media (IV Allergy Severe ANAPHYLAXIS Verified 03/27/25 14:57 CONTRAST) ivp dye Allergy Severe Anaphylaxis Uncoded 05/16/22 15:39 Review of Systems Review of Systems: Right anterior/pstioerr knee pain Yes all other systems are reviewed and are negative [facility] Past Medical History Medical History Allergic rhinitis Anxiety Asthma Chronic pain Fatty liver GERD (gastroesophageal reflux disease) High cholesterol History of opioid abuse HTN (hypertension) Insomnia Left inguinal hernia Liver hemangioma Obesity Opioid dependence Peripheral neuropathic pain Surgical History History of back surgery History of left inguinal hernia repair Hx of hernia repair Hx of total shoulder replacement Social History Social History Alcohol intake: former Patient Tobacco Use Status: Never used Tobacco Advance Directives: No Advance Directives Information Provided: No Do you have a plan to hurt others: No Plan Current occupational status: disabled 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 Physical Exam ED Vital Signs: Vital Signs - 24 hr 03/27/25 14:55 Temperature 97.3 F Pulse Rate 86 Respiratory Rate 18 Blood Pressure 150/73 H Pulse Oximetry 96 Oxygen Delivery Method Room Air BMI result Body Mass Index 39.9 Const General: cooperative, healthy appearing, comfortable, no acute distress, well developed, alert, awake and Physically active Orientation/consciousness: patient oriented x3 HENMT Head: Yes normal to inspection, Yes No palpable skull fracture present, Yes normocephalic and Yes atraumatic Eyes General: appearance normal, both eyes and all related structures Neck Neck: Yes normal visual inspection, Yes full ROM, Yes no lymphadenopathy, Yes no meningeal signs, Yes trachea midline, Yes supple, No anterior neck swelling and No tender Chest Chest palpation & inspection: normal inspection of the chest and normal palpation of entire chest wall Resp Effort & Inspection: normal respiratory effort and able to speak in complete sentences Cardio Jugular venous distension: no JVD Heart sounds: S1 normal heart sound present and S2 normal heart sound present GI Inspection: Yes normal to inspection Palpation (GI): Soft to palpation, not firm, nontender, no guarding and not rigid General: Yes no CVA tenderness Back/Spine/Pelvis Back: no CVA tenderness and No back tenderness Skin General skin exam: no rashes or lesions noted, elasticity normal and turgor normal Neuro General: patient oriented x3, gait normal, tone normal, moves all extremities, Normal light touch and pain sensation, no meningeal signs, no focal motor deficits, CN's II-XI intact bilaterally and normal sensation to monofilament Extrem General: Yes normal to inspection, Yes full ROM and Yes capillary refill normal Knee images:  1. Tenderness on palpation. Negative erythema, ecchymosis, deformity. Negative crepitus. Rest of extremity normal. Motor/neuro/vascular exam intact 2. Tenderness on palpation. Tenderness on palpation. Negative erythema, ecchymosis, deformity. Negative crepitus. Rest of extremity normal. Motor/neuro/vascular exam intact 3. Tenderness on palpation. Negative erythema, ecchymosis, deformity. Negative crepitus. Rest of extremity normal. Motor/neuro/vascular exam intact Psych Appearance: grossly normal, well kempt and not disheveled Course Course Course Narrative: RME: 49 yold male presents to the ED for right anterior and posterior knee/calf pain for the past weeks. Patient states injured right knee two years ago while playing sports and heard a pop, but never followed up. positive for right knee tenderness. labs US ordered. Medications Administered Discontinued Medications Generic Name Dose Route Start Last Admin Trade Name Freq PRN Reason Stop Dose Admin Ketorolac Tromethamine 30 mg 03/27/25 17:27 03/27/25 18:27 Ketorolac Tromethamine 30 Mg/Ml Vial IM 03/27/25 17:28 30 mg ONCE ONE Administration Medical Decision Making Medical Decision Making MDM Narrative: 49-year-old male presents to the ED for right knee pain without any trauma. Patient denies any swelling, redness, stiffness, fever, or chills. Labs were reassuring and at baseline. Ultrasound positive for Mcdaniel cyst negative for DVT. X-ray negative for joint effusion. Not suspecting gout or septic joint. Not suspecting arterial occlusion or compartment syndrome. Differential Diagnosis Differential Diagnoses: The differential diagnosis associated with the presentation includes (Mcdaniel's cyst septic joint, arthritis) Admission/Observation Consideration of admission/observation: Escalation of care including admission/observation considered Lab Data MDM Lab Attestation statement: I reviewed the patient's lab results. 03/27/25 15:12 03/27/25 15:12 Labs: Lab Results 03/27/25 Range/Units 15:12 WBC 6.5 (4.8-10.8) X10*3/uL RBC 4.68 (4.60-5.80) X10*6/uL Hgb 13.8 L (14.0-18.0) g/dl Hct 39.6 L (42.0-52.0) % MCV 84.6 (80.0-98.0) fL MCH 29.5 (27.0-33.0) pg MCHC 34.8 (31.0-36.0) g/dl RDW 12.5 (11.0-16.0) % Plt Count 187 (160-400) X10*3/uL MPV 10.2 (9.4-12.4) fL Immature Gran % (Auto) 0.6 H (0.0-0.4) % Neut % (Auto) 67.2 (45-73) % Lymph % (Auto) 21.2 (20-40) % [place] % (Auto) 8.7 (2-11) % Eos % (Auto) 1.7 (0-4) % Baso % (Auto) 0.6 (0-2) % Lymph # (Auto) 1.4 (1.2-4.9) X10*3/uL [place] # (Auto) 0.6 (0.1-1.2) X10*3/uL Eos # (Auto) 0.1 (0.0-0.4) X10*3/uL Baso # (Auto) 0.0 (0.0-0.2) X10*3/uL Abs Immat Gran (auto) 0.04 H (0.00-0.03) X10*3/uL Absolute Neuts (auto) 4.4 (2.0-8.3) x10*3/uL Absolute Nucleated RBC 0.000 (0.0-0.012) X10*3/uL Nucleated RBC % (auto) 0.0 (0.0-0.2) /100WBC PT 11.8 (10.9-12.4) SEC INR 1.0 (0.9-1.1) APTT 34.2 (26.0-36.8) SEC Sodium 140 (135-145) mmol/L Potassium 4.2 (3.3-5.1) mmol/L Chloride 105 (96-108) mmol/L Carbon Dioxide 28 (22-29) mmol/L Anion Gap 11 L (12-20) BUN 19 H (9-16) mg/dL Creatinine 1.22 (0.5-1.4) mg/dL Estim Creat Clear Calc 82.3 Estimated GFR > 60 Random Glucose 100 (60-115) mg/dL Calcium 9.2 (8.4-10.2) mg/dL Total Bilirubin 0.5 (0.0-1.0) mg/dL AST 39 H (5-37) U/L ALT 38 (0-40) U/L Alkaline Phosphatase 90 (39-117) U/L Total Protein 7.3 (6.5-8.0) g/dL Albumin 4.5 (3.5-5.0) g/dL Independent Interpretation I performed an independent interpretation of an: Plain X-Ray Independent Historian Clinical information obtained from an independent historian. History obtained from or confirmed by: Other (Patient) Prescription Management I considered prescription management with: Pain Medication Discharge Plan Discharge Clinical Impression: Mcdaniel's cyst of knee Patient Disposition: Home, Self-Care Instructions: Mcdaniel Cyst (ED) Additional Instructions: Ultrasound shows Mcdaniel's cyst. You will need follow up with orthopedic surgeon. Return to the ED for increased swelling, pain, redness, stiffness, fever, chills, calf pain, chest tightness, shortness of breath, or any other concerning symptoms. Prescriptions: New naproxen 500 mg tablet 500 mg PO BID PRN (Reason: pain) Qty: 14 0RF No Action pravastatin 40 mg Tablet 40 mg PO BEDTIME docusate sodium [Colace] 100 mg Capsule 100 mg PO BID mometasone 50 mcg/actuation [place],Non-Aerosol 2 spray INTRANASAL DAILY hydrochlorothiazide 25 mg Tablet 25 mg PO DAILY albuterol sulfate [Ventolin HFA] 90 mcg/actuation Hfa Aerosol Inhaler 2 puff INHALATION QID PRN (Reason: Shortness Of Breath Or Wheezing) buprenorphine-naloxone 8-2 mg Tablet, Sublingual 2 tab SUBLINGUAL DAILY pregabalin [Lyrica] 75 mg Capsule 75 mg PO BID omeprazole 40 mg capsule,delayed release(DR/EC) 1 cap PO DAILY acetaminophen [Arthritis Pain Relief (acetam)] 650 mg tablet extended release 2 tab PO Q8H PRN (Reason: Pain) fluticasone propionate 50 mcg/actuation spray,suspension 1 spray intranasal DAILY duloxetine 30 mg capsule,delayed release(DR/EC) 1 cap PO DAILY celecoxib 200 mg capsule 1 cap PO DAILY PRN (Reason: Pain) cyclobenzaprine 10 mg tablet 10 mg PO TID PRN (Reason: muscle spasm) Qty: 15 0RF lidocaine [Lidoderm] 5 % adhesive patch,medicated 1 patch topical DAILY Qty: 30 0RF Rx Instructions: leave on most painful area for up to 12 hrs naproxen 500 mg tablet 500 mg PO BID PRN (Reason: pain) Qty: 30 0RF Referrals: [facility] Orthopedic Surgeons [Provider Group, Orthopedics] - 3 days Referral Note: Mcdaniel's cyst Clinical Impression: Mcdaniel's cyst of knee Stand Alone Forms: Work/School Release Interventions: ED Discharge Assessment Last Done: 03/27/25 18:30 Discharge Date/Time: 03/27/25 18:32 Print Language: Turkish
[2025-03-27 15:16] LABS: MANUAL DIFF FLAG NO
[2025-03-27 15:18] LABS: Hematocrit 39.6 % (42.0-52.0); Hemoglobin 13.8 g/dl (14.0-18.0); Imm Gran Abs Auto 0.04 X10*3/uL (0.00-0.03); Imm Gran Pct Auto 0.6 % (0.0-0.4); Lymphocytes Absolute Auto 1.4 X10*3/uL (1.2-4.9); Mean Corpuscular HGB Conc 34.8 g/dl (31.0-36.0); Mean Corpuscular Hemoglobin 29.5 pg (27.0-33.0); Mean Corpuscular Volume 84.6 fL (80.0-98.0); NRBC Abs Auto 0.000 X10*3/uL (0.0-0.012); NRBC Pct Auto 0.0 /100WBC (0.0-0.2); Platelet Count 187 X10*3/uL (160-400); Red Blood Count 4.68 X10*6/uL (4.60-5.80); White Blood Count 6.5 X10*3/uL (4.8-10.8)
[2025-03-27 15:27] LABS: INTERNATIONAL NORM RATIO 1.0 (0.9-1.1); Prothrombin Time 11.8 SEC (10.9-12.4)
[2025-03-27 15:30] LABS: Partial Thromboplastin Time 34.2 SEC (26.0-36.8)
[2025-03-27 15:31] LABS: Alanine Aminotransferase 38 U/L (0-40); Albumin Level 4.5 g/dL (3.5-5.0); Alkaline Phosphatase 90 U/L (39-117); Anion Gap 11 (12-20); Aspartate Amino Transferase 39 U/L (5-37); Blood Urea Nitrogen 19 mg/dL (9-16); Calcium 9.2 mg/dL (8.4-10.2); Carbon Dioxide 28 mmol/L (22-29); Chloride 105 mmol/L (96-108); Creatinine Clr Calc Pharmacy 82.3; Estimated Glomerular Filt Rate > 60; Potassium 4.2 mmol/L (3.3-5.1); Sodium 140 mmol/L (135-145); Total Protein 7.3 g/dL (6.5-8.0)
--- OUTSIDE RECORDS SUMMARY | 2025-03-27 16:32 | XMS_ITS | Patient Health Record ---
Author Organization [facility] Address [address] [place] [address] Care Team Providers Care Cna Name Role Phone Name Bruno BELTRAN Primary Care Provider Yousuf Harden [phone] Allergies Allergen (clinical drug ingredient) Drug/Non Drug Allergy documented on EMR Reaction Allergy Type Onset Date Status MRI Contrast (uncoded) Unknown Allergy Active Reason For Referral No Information Medications Medication SIG (Take, Route, Frequency, Duration) Notes Start Date End Date Status Suboxone 8-2 MG 1 tablet under the tongue and allow to dissolve Sublingual Once a day Active Docusate Sodium 100 MG 1 capsule as need ed Orally Once a day for 30 day(s) Active Celecoxib 200 MG 1 capsule with food Orally Once a day for 30 day(s) Active Tylenol Arthritis Pain 650 MG 2 tablets as needed Orally every 8 hrs Active Ventolin HFA 90 MCG/ACT 1 puff as needed Inhalation every 4 hrs Active Pravastatin Sodium 40 MG 1 tablet Orally Once a day for 30 day(s) Active hydroCHLOROthiazide 25 MG 1 tablet in th e morning Orally Once a day for 30 day(s) Active DULoxetine HCl 30 MG 1 capsule Orally On a day for 30 day(s) Active Omeprazole 40 MG 1 capsule 30 minutes before morning meal Orally Once a day for 30 day(s) Active Pregabalin 75 MG 1 capsule Orally Twice a day Active MiraLax (colon prep) 17 GM/SCOOP 238 Gm Bottle mixed with Gatorade or Crystal Light Orally begin at 5:00 p.m. the day before the procedure for 1 day 09/21/2021 Active traZODone HCl 50 MG 1 tablet at bedtime as needed Orally Once a day for 30 day(s) Active Dulcolax (colon prep) 5 MG take at 3:00 p.m and 7:00p.m. Orally two tablets twice a day for one day for 1 day 09/21/2021 Active Immunizations Vaccine Route Administration Date Status Comme nts Influenza Unknown 09/21/2021 Refused Social History Tobacco Use: Social History Observation Description Date Details (start date - stop date) Never Smoker NA - NA Tobacco Use/Smoking Question Answer Notes Patient is a nonsmoker Alcohol Screen Question Answer Notes Did you have a drink containing alcohol in the p ast year? No Points 0 Interpretation Negative Section Notes: Nonsmoker; no alcohol Problems Problem Type SNOMED Code ICD Code Onset Dates Problem Status W/U Status Risk Notes Problem 419406258 Encounter for screening for malignant neoplasm of colon (Z12.11) Active confirmed Problem 540462249 Family history o f colonic polyps (Z83.71) Active confirmed Problem Gastroesophageal reflux (K21.9) Active confirmed Problem 870966029 Gastroesophageal reflux disease, unspecified whether esophagitis present (K21.9) Active confirmed Plan Of Treatment Pending Test Test Name Order Date Pathology 11/11/2021 Future Test Test Name Order Date UPPER GI ENDOSCOPY 09/21/2021 COLONOSCOPY 09/21/2021 Insurance Providers Payer Name Payer Address Payer Phone Subscriber Number Group Number Insured Name Patient Relationship to Insured Coverage Start Date Coverage End Date [facility] [address] [place] [address] [id number] ELICIA HU Self - patient is the insured 0 MEDICARE OF [place] [address] [place] [id number] ELICIA HU Self - patient is the insured Medical (General) History Medical History History ICD Code HTN Hyperlipidemia GERD--UGI at [facility]-never had an EGD Asthma Insomnia Arthritis Denies CT,DM,CVA,renal disease 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
[2025-03-27 18:30] VITALS: BP 160/76; PULSE 77; RESP 16; TEMP 36.8; O2SAT 99
== END 2025-03-27 18:32 | disposition home or self-care (01) ==
PROVIDERS: Physician Assistant; Emergency Provider Emergency Medicine; PCP Internal Medicine Geriatric Medicine
DX: M71.21 Synovial cyst of popliteal space [Baker], right knee (principal); M25.561 Pain in right knee; M79.661 Pain in right lower leg
CPT/HCPCS: 36415; 73564; 80053; 85025; 85610; 85730; 93971; 96372; 99283; 99284; J1885

== ENCOUNTER → 2025-03-27 14:59 | Outpatient (BNV) | payer OTHER, SELFPAY | PROVIDERS: Emergency Provider Emergency Medicine; PCP Internal Medicine Geriatric Medicine; Visit Provider Radiology Diagnostic Radiology | DX: M71.21 Synovial cyst of popliteal space [Baker], right knee (principal); M25.561 Pain in right knee | CPT/HCPCS: 73564; 93971 ==

== ENCOUNTER 2025-08-31 09:46 | Emergency (ER) | payer OTHER, SELFPAY ==
--- NOTE | ~2025-08-31 | US_ITS ---
EXAMINATION: US ABDOMEN LIMITED CLINICAL INFORMATION: Right upper quadrant pain. COMPARISON: None available. TECHNIQUE: Real-time imaging of the right upper quadrant abdominal viscera. FINDINGS: LIVER: Normal in size measuring 14.5 cm The liver contour is normal. Parenchymal echogenicity is increased. Focal fatty sparing adjacent to the gallbladder fossa. No focal hepatic lesion. There is no intrahepatic biliary duct dilatation seen. GALLBLADDER: The gallbladder is physiologically distended without evidence of stones, sludge, polyps, wall thickening or pericholecystic fluid. COMMON BILE DUCT: Normal in caliber measuring 0.3 cm in diameter. US/US abdomen limited IMPRESSION: Gallbladder appears unremarkable. No evidence of gallstones. There is generalized increase in hepatic echotexture, nonspecific, more commonly seen with infiltration.. Please correlate clinically. No focal hepatic mass or intrahepatic biliary duct dilatation is seen. Electronically signed by: Albert Parsons MD 08/31/2025 12:08 PM [facility]
[2025-08-31 10:03] VITALS: BP 150/95; PULSE 94; RESP 16; TEMP 36; O2SAT 98; BMI 41.5
--- NOTE | 2025-08-31 10:06 | ED.GENADULT ---
HPI - General Adult General Chief complaint: Abdominal Pain Stated complaint: Pain On Right Side Time Seen by Provider: 08/31/25 10:42 Source: patient and old records reviewed Mode of arrival: ambulatory Limitations: no limitations History of Present Illness ED Provider: BOUCHRA WOODARD narrative: 50-year-old male with past medical history of hypertension, orthopedic surgeries, Suboxone use, reactive airway disease, GERD, hyperlipidemia here with complaint of right-sided abdominal pain in the liver and gallbladder area. He states he was told he had a fatty liver and was unclear if he had cysts in his liver. He states the pain is worse when he sleeping and moves at night. He has had no fevers, constipation, weight loss, change in appetite, nausea, vomiting, diarrhea. He has no urinary symptoms either. He states he has been having too much pain in his area so we held off his knee surgery as well. He notes his pain is not made worse with eating and it really hurts him at night when he moves. MD complaint: RUQ abd pain Onset (ago): week(s) (2) Location: abdomen Radiation: non-radiation Severity: moderate Quality: stabbing and aching Pain Consistency: intermittent Relieving factors: none Exacerbating factors: movement Associated symptoms: denies other symptoms Treatments prior to arrival: none Related Data Home Medications ?Medication ?Instructions ?Recorded ?Confirmed albuterol sulfate 90 mcg/actuation 2 puff inhalation QID PRN 06/28/20 11/07/21 aerosol inhaler (Ventolin HFA) Shortness Of Breath Or Wheezing buprenorphine 8 mg-naloxone 2 mg 2 tab sublingual DAILY 06/28/20 11/07/21 sublingual tablet docusate sodium 100 mg capsule 100 mg PO BID 06/28/20 11/07/21 (Colace) hydrochlorothiazide 25 mg tablet 25 mg PO DAILY 06/28/20 11/07/21 mometasone 50 mcg/actuation nasal 2 spray intranasal DAILY 06/28/20 11/07/21 spray pravastatin 40 mg tablet 40 mg PO BEDTIME 06/28/20 11/07/21 pregabalin 75 mg capsule (Lyrica) 75 mg PO BID 06/28/20 11/07/21 acetaminophen 650 mg 2 tab PO Q8H PRN Pain 11/07/21 11/07/21 tablet,extended release (Arthritis Pain Relief (acetaminophen) ER) celecoxib 200 mg capsule 1 cap PO DAILY PRN Pain 11/07/21 11/07/21 duloxetine 30 mg capsule,delayed 1 cap PO DAILY 11/07/21 11/07/21 release fluticasone propionate 50 1 spray intranasal DAILY 11/07/21 11/07/21 mcg/actuation nasal spray,suspension omeprazole 40 mg capsule,delayed 1 cap PO DAILY 11/07/21 11/07/21 release Previous Rx's ?Medication ?Instructions ?Recorded cyclobenzaprine 10 mg tablet 10 mg PO TID PRN muscle spasm #15 01/20/23 tabs lidocaine 5 % topical patch 1 patch topical DAILY #30 ea 01/20/23 (Lidoderm) naproxen 500 mg tablet 500 mg PO BID PRN pain #30 tabs 01/20/23 naproxen 500 mg tablet 500 mg PO BID PRN pain #14 tabs 03/27/25 cyclobenzaprine 10 mg tablet 10 mg PO TID PRN muscle spasm #20 08/31/25 tabs Allergies Allergy/AdvReac Type Severity Reaction Status Date / Time Iodinated Contrast Media (IV Allergy Severe ANAPHYLAXIS Verified 08/31/25 10:06 CONTRAST) ivp dye Allergy Severe Anaphylaxis Uncoded 08/31/25 10:06 Review of Systems Review of Systems: Yes all other systems are reviewed and are negative PMFSH Past Medical History Attestation statement: The following information was validated with the patient. Source: old records reviewed Medical History History of opioid abuse Insomnia Asthma Left inguinal hernia Anxiety GERD (gastroesophageal reflux disease) Peripheral neuropathic pain HTN (hypertension) Obesity Allergic rhinitis Liver hemangioma Fatty liver Opioid dependence Chronic pain High cholesterol Surgical History History of left inguinal hernia repair Hx of total shoulder replacement Hx of hernia repair History of back surgery Social History Social History Alcohol intake: former Patient Tobacco Use Status: Never used Tobacco Smoked in Last 30 Days: No Use of substances other than those prescribed or required for medical reasons: No Advance Directives: No Advance Directives Information Provided: Yes Current occupational status: disabled 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 Oriented X3. No acute distress. Eyes: Pupils equal, round and reactive to light. ENT: Pharynx normal. Neck: Normal inspection. Neck supple. CVS: Normal heart rate and rhythm. Pulses normal. Respiratory: No respiratory distress. Breath sounds normal. Abdomen: Soft and ttp in RUQ no mass felt Skin: Skin warm and dry. Normal skin color. Normal skin turgor. Extremities: No lower extremity edema. No calf ttp Neuro: Oriented X 3. No motor deficit. No sensory deficit. CN2-12 intact Course Course Course Narrative: RME: Year old male presents to ED for right upper quadrant pain for the past 3-4 weeks. Patient states pain in his liver area. Patient denies any recent travel recent surgery recent trauma or any urinary symptoms. Labs ordered Medical Decision Making Medical Decision Making [facility] Narrative: 50-year-old male with past medical history of hypertension, orthopedic surgeries, Suboxone use, reactive airway disease, GERD, hyperlipidemia here with c/o chronic abdominal pain for 2 weeks he has no red flags on exam and his pain is worse with movement. At this time I am going to obtain basic labs, ultrasound of liver and gallstones. He is overall well-appearing. I do not feel any mass in that area. He has no weight loss, no associated GI or GI symptoms. This could also be musculoskeletal strain given it is worse at night when he moves. Differential Diagnosis Differential Diagnoses: The differential diagnosis associated with the presentation includes Chronic abdominal pain, constipation, biliary colic, muscle strain Admission/Observation Consideration of admission/observation: Escalation of care including admission/observation considered at this time no acute findings seen on labs or US with 2 weeks of symptoms Lab Data [facility] Lab Attestation statement: I reviewed the patient's lab results. 08/31/25 10:17 08/31/25 10:17 Labs: Lab Results 08/31/25 08/31/25 Range/Units 10:17 11:14 WBC 7.2 (4.8-10.8) X10*3/uL RBC 4.94 (4.60-5.80) X10*6/uL Hgb 14.5 (14.0-18.0) g/dl Hct 43.5 (42.0-52.0) % MCV 88.1 (80.0-98.0) fL MCH 29.4 (27.0-33.0) pg MCHC 33.3 (31.0-36.0) g/dl RDW 12.2 (11.0-16.0) % Plt Count 177 (160-400) X10*3/uL MPV 10.8 (9.4-12.4) fL Immature Gran % (Auto) 1.1 H (0.0-0.4) % Neut % (Auto) 69.7 (45-73) % Lymph % (Auto) 17.2 L (20-40) % [place] % (Auto) 8.2 (2-11) % Eos % (Auto) 3.2 (0-4) % Baso % (Auto) 0.6 (0-2) % Lymph # (Auto) 1.2 (1.2-4.9) X10*3/uL [place] # (Auto) 0.6 (0.1-1.2) X10*3/uL Eos # (Auto) 0.2 (0.0-0.4) X10*3/uL Baso # (Auto) 0.0 (0.0-0.2) X10*3/uL Abs Immat Gran (auto) 0.08 H (0.00-0.03) X10*3/uL Absolute Neuts (auto) 5.0 (2.0-8.3) x10*3/uL Absolute Nucleated RBC 0.000 (0.0-0.012) X10*3/uL Nucleated RBC % (auto) 0.0 (0.0-0.2) /100WBC Sodium 140 (135-145) mmol/L Potassium 4.4 (3.3-5.1) mmol/L Chloride 103 (96-108) mmol/L Carbon Dioxide 31 H (22-29) mmol/L Anion Gap 10 L (12-20) BUN 18 H (9-16) mg/dL Creatinine 1.00 (0.5-1.4) mg/dL Estim Creat Clear Calc 98.0 Estimated GFR > 60 Random Glucose 106 (60-115) mg/dL Calcium 9.5 (8.4-10.2) mg/dL Total Bilirubin 0.4 (0.0-1.0) mg/dL AST 30 (5-37) U/L ALT 36 (0-40) U/L Alkaline Phosphatase 95 (39-117) U/L C-Reactive Protein 0.16 (< or = 0.50) mg/dL Total Protein 7.5 (6.5-8.0) g/dL Albumin 4.5 (3.5-5.0) g/dL Lipase 34 (8-78) U/L Urine Color Yellow Urine Appearance Clear Urine pH 8.5 (5.0-9.0) Ur Specific [place] <= 1.005 (1.005-1.025) Urine Protein Negative (Neg-Trace) mg/dL Urine Glucose (UA) Negative (Negative) mg/dL Urine Ketones Negative (Negative) mg/dL Urine Blood Negative (Negative) Urine Nitrite Negative (Negative) Ur Leukocyte Esterase Negative (Negative) Independent Interpretation I performed an independent interpretation of an: Ultrasound (fatty liver) Radiology Impression Discussion of test interpretation with radiology: I have reviewed the radiologist's reading. External Record Review External record reviewed: Outpatient record, Prior outpatient labs and Prior outpatient radiology Discharge Plan Discharge Clinical Impression: Abdominal pain Patient Disposition: Home, Self-Care Instructions: Abdominal Pain (ED) Additional Instructions: labs reassuring your liver enzymes are normal US shows fatty liver but no other acute findings please follow up with your primary care doctor return for any worsening symptoms or concerns will start on muscle relaxer. Prescriptions: New cyclobenzaprine 10 mg tablet 10 mg PO TID PRN (Reason: muscle spasm) Qty: 20 0RF No Action pravastatin 40 mg Tablet 40 mg PO BEDTIME docusate sodium [Colace] 100 mg Capsule 100 mg PO BID mometasone 50 mcg/actuation [place],Non-Aerosol 2 spray INTRANASAL DAILY hydrochlorothiazide 25 mg Tablet 25 mg PO DAILY albuterol sulfate [Ventolin HFA] 90 mcg/actuation Hfa Aerosol Inhaler 2 puff INHALATION QID PRN (Reason: Shortness Of Breath Or Wheezing) buprenorphine-naloxone 8-2 mg Tablet, Sublingual 2 tab SUBLINGUAL DAILY pregabalin [Lyrica] 75 mg Capsule 75 mg PO BID omeprazole 40 mg capsule,delayed release(DR/EC) 1 cap PO DAILY acetaminophen [Arthritis Pain Relief (acetam)] 650 mg tablet extended release 2 tab PO Q8H PRN (Reason: Pain) fluticasone propionate 50 mcg/actuation spray,suspension 1 spray intranasal DAILY duloxetine 30 mg capsule,delayed release(DR/EC) 1 cap PO DAILY celecoxib 200 mg capsule 1 cap PO DAILY PRN (Reason: Pain) cyclobenzaprine 10 mg tablet 10 mg PO TID PRN (Reason: muscle spasm) Qty: 15 0RF lidocaine [Lidoderm] 5 % adhesive patch,medicated 1 patch topical DAILY Qty: 30 0RF Rx Instructions: leave on most painful area for up to 12 hrs naproxen 500 mg tablet 500 mg PO BID PRN (Reason: pain) Qty: 30 0RF naproxen 500 mg tablet 500 mg PO BID PRN (Reason: pain) Qty: 14 0RF Interventions: ED Discharge Assessment Last Done: 08/31/25 12:29 Discharge Date/Time: 08/31/25 12:29 Print Language: Bulgarian
[2025-08-31 10:23] LABS: MANUAL DIFF FLAG NO
[2025-08-31 10:34] LABS: Hematocrit 43.5 % (42.0-52.0); Hemoglobin 14.5 g/dl (14.0-18.0); Imm Gran Abs Auto 0.08 X10*3/uL (0.00-0.03); Imm Gran Pct Auto 1.1 % (0.0-0.4); Lymphocytes Absolute Auto 1.2 X10*3/uL (1.2-4.9); Mean Corpuscular HGB Conc 33.3 g/dl (31.0-36.0); Mean Corpuscular Hemoglobin 29.4 pg (27.0-33.0); Mean Corpuscular Volume 88.1 fL (80.0-98.0); NRBC Abs Auto 0.000 X10*3/uL (0.0-0.012); NRBC Pct Auto 0.0 /100WBC (0.0-0.2); Platelet Count 177 X10*3/uL (160-400); Red Blood Count 4.94 X10*6/uL (4.60-5.80); White Blood Count 7.2 X10*3/uL (4.8-10.8)
[2025-08-31 10:46] LABS: Alanine Aminotransferase 36 U/L (0-40); Albumin Level 4.5 g/dL (3.5-5.0); Alkaline Phosphatase 95 U/L (39-117); Anion Gap 10 (12-20); Aspartate Amino Transferase 30 U/L (5-37); Blood Urea Nitrogen 18 mg/dL (9-16); Calcium 9.5 mg/dL (8.4-10.2); Carbon Dioxide 31 mmol/L (22-29); Chloride 103 mmol/L (96-108); Creatinine Clr Calc Pharmacy 98.0; Estimated Glomerular Filt Rate > 60; Lipase 34 U/L (8-78); Potassium 4.4 mmol/L (3.3-5.1); Sodium 140 mmol/L (135-145); Total Protein 7.5 g/dL (6.5-8.0)
[2025-08-31 11:20] LABS: Appearance Urine Clear; Glucose Urine UA Negative (Negative); PH 8.5 (5.0-9.0); Specific Gravity - Urine <= 1.005 (1.005-1.025)
[2025-08-31 12:00] VITALS: BP 110/69; PULSE 74; TEMP 36.8; O2SAT 94
[2025-08-31 12:29] VITALS: BP 110/69; PULSE 74; RESP 18; TEMP 36.8; O2SAT 94
--- OUTSIDE RECORDS SUMMARY | 2025-08-31 13:38 | XMS_ITS | Clinical Summary ---
Author Organization [employer] Address [address] [facility] [address] [place] [address] Care Team Providers Care Product Marketing Coordinator Name Role Phone Name, Bruno BELTRAN Primary Care Provider [phone] Allergies Active Allergy Reactions Criticality Noted Date Comments Iodinated Contrast Media Anaphylaxis High 09/21/2021 Other reaction(s): Unknown Other reaction(s): Unknown Medications pregabalin (Lyrica) 75 MG capsule Take 1 capsule by mouth in the morning and 1 capsule in the evening. Active Earwax Removal 6.5 % otic solution USE 5 TO 10 DROPS INTO THE AFFECTED EAR(S) TWICE DAILY FOR 4 DAYS 15 mL 1 05/02/20 23 Active cyclobenzaprin e (Flexeril) 10 MG tablet TAKE 1 TABLET BY MOUTH THREE TIMES DAILY IN THE MORNING, AT NOON, AND AT BEDTIME NEEDED FOR MUSCLE SPASMS 90 tablet 11 5 12:06 PM EST 11/03/19 25 Active famotidine (Pepcid) 20 MG tabletIndicati ons:Chronic heartburn TAKE 1 TABLET BY MOUTH TWICE DAILY 60 tablet 11 5 12:06 PM EST 11/06/19 25 Active Ventolin HFA 108 (90 Base) MCG/ACT inhalerIndicat ions:Allergic rhinitis, unspecified seasonality, unspecified trigger INHALE 2 PUFFS BY MOUTH EVERY 4 TO 6 HOURS NEEDED 18 g 11 5 2:43 PM EST 03/11/20 25 Active acetaminophen (Tylenol 8 Hour) 650 MG ER tabletIndicati ons:Acute pain of right knee TAKE 2 TABLETS BY MOUTH EVERY 8 HOURS NEEDED FOR MILD PAIN. DO NOT BREAK, CRUSH, DISSOLVE OR CHEW. 180 tablet 3 03/18/20 25 Active cetirizine (ZyrTEC) 10 MG tabletIndicati ons:Subacute cough Take 1 tablet (10 mg) by mouth Once per day. 90 tablet 3 03/18/20 25 Active fluticasone (Flonase) 50 MCG/ACT nasal sprayIndicatio ns:Subacute cough Administer 1 spray into each nostril Once per day. Shake gently. Before first use, prime pump. After use, clean tip and replace cap. 16 g 5 5 2:43 PM EST 03/18/20 25 Active losartan (Cozaar) 50 MG tablet TAKE 1 TABLET BY MOUTH EVERY DAY 30 tablet 11 5 12:06 PM EST 03/26/20 25 Active pravastatin (Pravachol) 40 MG tablet Take 1 tablet (40 mg) by mouth Once per day. 90 tablet 11 5 2:43 PM EST 05/04/20 25 Active Blood Pressure Monitoring (Blood Pressure Kit) kitIndications :Essential hypertension,H ypercholestero lemia Use once a dayUse once a day 1 kit 05/04/20 25 Active Suboxone 8-2 MG SL filmIndication s:Uncomplicate d opioid dependence (CMS/HCC) ([facility]) Place 1 Film under the tongue 2 times daily. 56 Film 2 5 12:06 PM EST 06/16/20 25 026 Active naloxone (Narcan) 4 mg/0.1 mL nasal spray FOR SUSPECTED OPIOID OVERDOSE. SPRAY 0.1mL IN ONE NOSTRIL. REPEAT IN ALTERNATE NOSTRIL 2-3 MINUTES IF NEEDED. SEEK MEDICAL ATTENTION IMMEDIATELY EVEN IF PATIENT RESPONDS. 2 each 3 06/24/20 25 Active DULoxetine (Cymbalta) [address] capsule TAKE 1 CAPSULE BY MOUTH EVERY DAY 30 capsule 2 5 12:06 PM EST 08/12/20 25 Active traZODone (Desyrel) 100 MG tablet TAKE 1 TABLET BY MOUTH AT BEDTIME 30 tablet 2 5 12:06 PM EST 08/12/20 25 Active docusate sodium (Colace) 100 MG capsuleIndicat ions:Uncomplic ated opioid dependence (CMS/HCC) ([facility]) TAKE 1 CAPSULE BY MOUTH TWICE DAILY IN THE MORNING AND AT BEDTIME NEEDED FOR CONSTIPATION 60 capsule 5 5 12:06 PM EST 12/03/20 25 Active docusate sodium (Colace) 100 MG capsuleIndicat ions:Uncomplic ated opioid dependence (CMS/HCC) (HCC) TAKE 1 CAPSULE BY MOUTH TWICE DAILY IN THE MORNING AND AT BEDTIME NEEDED FOR CONSTIPATION 60 capsule 5 02/28/20 25 025 Discontinued DULoxetine (Cymbalta) [address] capsule TAKE 1 CAPSULE BY MOUTH EVERY DAY 30 capsule 2 05/20/20 25 025 Discontinued traZODone (Desyrel) 100 MG tablet TAKE 1 TABLET BY MOUTH AT BEDTIME 30 tablet 2 05/20/20 25 025 Discontinued Active Problems Problem Noted Date Diagnosed Date Acute pain of right knee 03/18/2025 Assessment & Plan (03/20/2025 11:08 AM EDT): R knee pain x few days, it feels swollen to him and pain interiorly. This has happened on and off to him before. No injury or trauma. TECHNIQUE: Four views of the right knee. FINDINGS: No fracture or joint effusion. Alignment is anatomic. Joint spaces are maintained. No abnormal soft tissue calcification. XR/XR knee RT 3V IMPRESSION: Normal right knee. Has Iburpofen at home, add Tylenol to it every 6-8 hours for 5 days. Referred to PT, if no improvement after 2-4 weeks of PT, consider sports med referral and injection. Fractured dental buddhism without loss of mat erial 03/31/2024 Normal oral exam 03/31/2024 Fractured dental buddhism with loss of materi al 01/28/2024 Viral upper respiratory tract infection 11/23/19 24 Assessment & Plan (11/23/2023 5:55 AM EDT): Pt w flu type symptoms and close contact -States his tested positive for Flu at hospital 3 days ago. Here Flu and COVID 19 neg Despite one neg rapid flu test will tx empirically for still possible Flu infection based in symptoms and exposure. Chem 10/2023 wnl -start tamiflu -pt within window and with risk factors for complications -mucinex -tylenol -hydration -mask use ,hand hygiene discussed -alarm signs and symptoms Missing teeth, acquired 08/16/2023 Loss of filling from access hole of tooth 12/07/ 2023 Lumbar radiculopathy 04/27/2023 History of hernia repair 04/27/2023 Left arm numbness 04/27/2023 Left inguinal hernia 04/27/2023 Status post left shoulder hemiarthroplasty 04/27 Hospital discharge follow-up 02/02/2023 Encounter for screening for malignant neoplasm o f colon 02/01/2023 Family history of colonic polyps 02/01/2023 Gastro-esophageal reflux disease without esophag itis 01/02/2023 Dental caries 12/26/2022 Peripheral neuropathic pain 02/14/2018 Tarsal tunnel syndrome 02/14/2018 Obesity 07/31/2017 Essential hypertension 06/19/2017 Assessment & Plan (11/23/2023 5:55 AM EDT): -BP 147/90 Noted elevated today , pt to f w PCP BP to eval if need adjustment ,hold for now w current active symptoms -apt w PCP 01/01/2024 already scheduled Elevated blood pressure reading 03/16/2017 Uncomplicated opioid dependence (CMS/HCC) 2015 Allergic rhinitis 02/29/2016 Steatosis of liver 02/29/2016 Carpal tunnel syndrome of right wrist 11/30/2015 Chronic low back pain 11/30/2015 Assessment & Plan (02/03/2023 2:02 PM EDT): Patient stating electrical shocks around the area in his lumbar spine where he previously had spinal surgery 10 years ago. He states it happens when he bends over but does not require him to strain (I.e. it happens easily before he gets to a point where he has to push himself to bend over further). I believe this plus him reporting 3 episodes of transient saddle anesthesia since 10/2022 warrants an MRI. MRI ordered: Patient having electrical shock sensations in lumbar spine. Reports three episode of transient saddle anesthesia since 10/2022; denies symptoms today, denies ever having incontinence. Refilled patient cyclobenzaprine which he reports helps with his pain much better than baclofen. Shoulder pain 11/30/2015 Hypercholesterolemia 11/12/2013 Resolved Problems Problem Noted Date Diagnosed Date Resolved Date Acute right ankle pain 01/02/202303/20 Overview (01/02/2023): Likely sprained. -Splinted today. -Ibuprofen given. -Will check X-rays. Assessment & Plan (01/02/2023 4:12 PM EDT): Likely sprained. -Splinted today. -Ibuprofen given. -Will check X-rays.. Hemangioma of liver 02/29/2016 10/31/19 24 Foot pain 11/30/2015 02/03/2025 Encounters Date Type Department Care Team Description 08/31/2025 Orders Only GENERIC EXTERNAL DATA DEPARTMENT Provider, Generic External Data 08/18/2025 Telephone [facility] [address] [place] [phone] Bruno Berry MD Nurse Triage 08/18/2025 Telephone [facility] [address] [place] [phone] Khushboo Coello MA dec recalls 08/12/2025 Refill [facility] [address] [place] [address] Bruno Berry MD Uncomplicated opioid dependence (CMS/HCC) (HCC) 06/23/2025 1:15 PM EDT Clinical Support [facility] [address] [place] [phone] Karina Shrestha RN Opioid type dependence, continuous (CMS/HCC) (HCC) (Primary Dx) 06/23/2025 Travel 06/23/2025 Refill [facility] [address] [place] [phone] James Clemons MD 06/22/2025 Orders Only [facility] [address] [place] [address] [phone] Karina Shrestha RN Uncomplicated opioid dependence (CMS/HCC) (HCC) 06/16/2025 Refill [facility] [address] [place] [phone] Karina Shrestha RN Uncomplicated opioid dependence (CMS/HCC) (HCC) 06/16/2025 Refill [facility] [address] [place] [phone] James Clemons MD Uncomplicated opioid dependence (CMS/HCC) (HCC) from Last 3 Months Immunizations Immunization Administration Dates Next Due Hep A, Adult 05/15/2017,11/07/2016 Hep B, adult 05/15/2017,01/09/2017,11/07/2016 Moderna Covid-19 Vaccine 12+ 09/15/2021,01/14/20 21,12/16/2020 Pneumococcal Conjugate PCV 20 11/03/2024 Tdap 11/03/2024,11/04/2013 Social History Tobacco Use Types Packs/Day Years Used Date Smoking Tobacco: Never Smokeless Tobacco: Never Tobacco Cessation:Counseling Given: Not Answered Alcohol Use Standard Drinks/Week Comments Not Currently 0 (1 standard drink = 0.6 oz pur e alcohol) Depression Answer Date Recorded Patient Health Questionnaire-9 Score 2 02/03/2025 Patient Health Questionnaire-9 Score 2 02/03/2025 Last PHQ-9: Questionnaire Data Not on file 0 02/03/2025 Housing Stability Answer Date Recorded What is your housing situation today? I have pavan souza 05/04/[address] you li ve. Do you have problems with any of the following? None of the above 05/04/2025 Food Insecurity Answer Date Recorded Within the past 12 months, y ou worried that your food would run out before you got money to buy more: Sometimes True 2024 Within the past 12 months,th e food you bought just didn't last and you didn't have enough money to get more: Sometimes True 05/04/2025 Transportation Answer Date Recorded In the past [...] Orientation Straight 07/10/2022 10 :24 AM EDT Last Filed Vital Signs Vital Sign Reading Time Taken Comments Blood Pressure 122/72 05/04/2025 11:14 AM EDT Pulse 84 05/04/2025 11:14 AM EDT Temperature 36.4 C (97.6 F) 05/04/2025 11:14 AM EDT Respiratory Rate 14 05/04/2025 11:14 AM EDT Oxygen Saturation 97% 05/04/2025 11:14 AM EDT Inhaled Oxygen Concentration - - Weight 110 kg (241 lb 12.8 oz) 05/04/2025 11:14 AM EDT Height 165.1 cm (5' 5 ) 05/04/2025 11:14 AM EDT Body Mass Index 40.24 05/04/2025 11:14 AM EDT Plan of Treatment Upcoming Encounters Date Type Department Care Team (Late st Contact Info) Description 09/15/2025 1:15 PM EST Office Visit [facility] [address] [place] [phone] James Clemons MD [address] [place] [phone] 09/23/2025 2:30 PM EST Office Visit [facility] ADULT DENTAL [address] [place] [phone] Alex Webber DDS [address] [place] [address] 10/19/2025 11:15 AM EST Office Visit [facility] [address] [place] [phone] Name, MD Bruno [address] [place] [phone] Health Maintenance Due Date Last Done Comments CT Colonography 1974 FIT DNA/Cologuard 1975 FIT 1975 FOBT 1975 Sigmoidoscopy 1975 Family Planning (PISQ) 1989 RSV Patients and Patients Aged 60 years or older (1 - Risk 50-74 years 1-dose series) 2024 Zoster Vaccines (1 of 2) 2024 Dental X-Ray: Bitewings 08/17/2024 08/16/2023, 07/24 Dental X-Ray: Full Mouth 10/28/2024 10/27/2021 Dental Oral Exam 04/02/2025 10/02/2024, , 08/16/2023, Additional history exists Dental Prophylaxis 04/02/2025 10/02/2024, 0 03/31/2024, 08/16/2023 COVID-19 Vaccine ( season) 2025 09/15/2021, 01/13/2021, 12/16/2020 Influenza Vaccine (#1) 2025 Alcohol/Substance Use Screening 02/03/2026 02/03/2025 Depression Screening 02/03/2026 02/03/2025, 02/04/20 25 Disability Screening 02/03/2026 02/03/2025 SDOH Screening 05/04/2026 05/04/2025 Tobacco Screening 05/04/2026 05/04/2025 Colonoscopy 11/11/2026 11/11/2021, 11/11/2021 Colorectal Cancer Screening 11/11/2026 Lipid Panel 09/20/2027 09/20/2022, 04/0 02/2021, 08/30/2020 DTaP/Tdap/Td Vaccines (3 - Td or Tdap) 11/03/2034 11/03/2024, 11/04/2013 Hepatitis A Vaccines Completed 05/15/2017, 11/07/19 17 Hepatitis B Vaccines Completed 05/15/2017, 01/09/2017, 11/07/2016 HIV Screening Completed 04/30/2024 Hepatitis C Screening Completed 04/30/2024 Pneumococcal Vaccine: 50+ Years Completed 11/03/2024 HIB Vaccines Aged Out No longer eligi ble based on patient's age to complete this topic HPV Vaccines Aged Out No longer eligi ble based on patient's age to complete this topic IPV Vaccines Aged Out No longer eligi ble based on patient's age to complete this topic Meningococcal B Vaccine Aged Out No l onger eligible based on patient's age to complete this topic Meningococcal Vaccine Aged Out No evan sindey eligible based on patient's age to complete this topic RSV under 20 months Aged Out No longe r eligible based on patient's age to complete this topic Rotavirus Vaccines Aged Out No longer eligible based on patient's age to complete this topic Procedures Procedure Name Priority Date/Time Associated Diagnosis Comments US ABDOMEN LIMITED Routine 08/31/2025 11 :33 AM EST URINALYSIS WITH REFLEX MICROSCOPIC Routine 08/31/2025 11:14 AM EST C-REACTIVE PROTEIN Routine 08/31/2025 10 :17 AM EST LIPASE Routine 08/31/2025 10:17 AM EST COMPREHENSIVE METABOLIC PANEL Routine 08/31/2025 10:17 AM EST CBC WITH AUTO DIFFERENTIAL Routine 08/31/2025 10:17 AM EST POCT TOM-14 URINE DRUG SCREEN Routine 06/23/2025 1:14 PM EDT Opioid type dependence, continuous (CMS/HCC) (HCC) AMB REFERRAL TO ORTHOPAEDIC SURGERY Routine 06/05/2025 Mcdaniel's cyst of knee, right Full PROPHYLAXIS - ADULT Routine 10/02/2024 1:00 PM EST Dental plaque PERIODIC ORAL EVALUATION - ESTABLISHED PATIENT Routine 10/02/2024 1:00 PM EST HEPATITIS C AB W/REFL TO HCV RNA, QN, PCR Routine 04/30/2024 11:00 AM EDT HIV 1/2 ANTIGEN/ANTIBODY, FOURTH GENERATION W/RFL Routine 04/30/2024 11:00 AM EDT BITEWINGS - 4 RADIOGRAPHIC IMAGES Routine 08/16/2023 1:00 PM EST Missing teeth, acquired LIPID PANEL, STANDARD Routine 09/20/2022 8:13 AM EST HM COLONOSCOPY Routine 11/11/2021 10:35 AM EST from Last 3 Months or Most Recently Relevant to Health Maintenance Results * US Abdomen Limited (08/31/2025 11:33 AM EST) Anatomical Region Laterality Modality Abdomen Ultrasound 08/31/2025 11:3 3 AM EST Narrative 08/31/2025 12:13 PM EST [address] [address] Ultrasound Report Signed Patient: Jose Carlos Gay MR#: [id number] : 1975 Acct:[id number] Age/Sex: 50 / M ADM Date: 08/31/25 Loc: HO.ED Attending Dr: Ordering Physician: Shaye Avery DO Date of Service: 08/31/25 Procedure(s): US abdomen limited Accession Number(s): [id number] cc: Shaye Avery DO; Name,Bruno BELTRAN Reason for Exam: RUQ pain, liver and GB please EXAMINATION: US ABDOMEN LIMITED CLINICAL INFORMATION: Right upper quadrant pain. COMPARISON: None available. TECHNIQUE: Real-time imaging of the right upper quadrant abdominal viscera. FINDINGS: LIVER: Normal in size measuring 14.5 cm The liver contour is normal. Parenchymal echogenicity is increased. Focal fatty sparing adjacent to the gallbladder fossa. No focal hepatic lesion. There is no intrahepatic biliary duct dilatation seen. GALLBLADDER: The gallbladder is physiologically distended without evidence of stones, sludge, polyps, wall thickening or pericholecystic fluid. COMMON BILE DUCT: Normal in caliber measuring 0.3 cm in diameter. US/US abdomen limited IMPRESSION: Gallbladder appears unremarkable. No evidence of gallstones. There is generalized increase in hepatic echotexture, nonspecific, more commonly seen with infiltration.. Please correlate clinically. No focal hepatic mass or intrahepatic biliary duct dilatation is seen. Electronically signed by: Albert Parsons MD 08/31/2025 12:08 PM EST Dictated By: Albert Parsons MD Signed By: <Electronically signed by Albert Parsons MD in OV> 08/31/25 1208 DD/ 1133 TD/TT: 08/31/25 1137 Transformer Stock Clerk: DANTE Procedure Note Donotuseinterpreter, Image - 08/31/[address] [address] Ultrasound Report Signed Patient: Jose Carlos Gay LMR#: [id number] : 1975Acct:[id number] Age/Sex: 50 / MADM Date: 08/31/25 Loc: HO.ED Attending Dr: Ordering Physician: Shaye Avery DO Date of Service: 08/31/25 Procedure(s): US abdomen limited Accession Number(s): [id number] cc: Shaye Avery DO; Name,Bruno BELTRAN Reason for Exam: RUQ pain, liver and GB please EXAMINATION: US ABDOMEN LIMITED CLINICAL INFORMATION: Right upper quadrant pain. COMPARISON: None available. TECHNIQUE: Real-time imaging of the right upper quadrant abdominal viscera. FINDINGS: LIVER: Normal in size measuring 14.5 cm The liver contour is normal. Parenchymal echogenicity is increased. Focal fatty sparing adjacent to the gallbladder fossa. No focal hepatic lesion. There is no intrahepatic biliary duct dilatation seen. GALLBLADDER: The gallbladder is physiologically distended without evidence of stones, sludge, polyps, wall thickening or pericholecystic fluid. COMMON BILE DUCT: Normal in caliber measuring 0.3 cm in diameter. US/US abdomen limited IMPRESSION: Gallbladder appears unremarkable. No evidence of gallstones. There is generalized increase in hepatic echotexture, nonspecific, more commonly seen with infiltration.. Please correlate clinically. No focal hepatic mass or intrahepatic biliary duct dilatation is seen. Electronically signed by: Albert Parsons MD 08/31/2025 12:08 PM EST Dictated By: Albert Parsons MD Signed By: <Electronically signed by Albert Parsons MD in OV> 08/31/25 1208 DD/ 1133 TD/TT: 08/31/25 1137 Transformer Stock Clerk: DANTE [facility] External Provider IMG US PROCEDURES Edited Result - Final * Urinalysis w/reflex microscopic (08/31/2025 11:14 AM EST) Color Urine Yellow [facility] Appearance Urine Clear [facility] PH 8.5 5.0 - 9.0 [facility] Glucose Urine UA Negative Negative mg/dL [facility] Urine Blood Negative Negative [facility] Specific [place] - Urine <=1.005 1.005 - 1.025 [facility] Urine Protein Negative Neg-Trace mg/dL [facility] Urine Ketones Negative Negative mg/dL [facility] Nitrite Urine Negative Negative [facility] Leukocyte Esterase Urine Negative Negative [facility] 08/31/2025 11:1 4 AM EST 08/31/2025 11:17 AM EST Narrative [facility] - 08/31/2025 11:26 AM EST [id number], Clean Catch us Generic External Data Provider LAB URINE ORDERAB LES Final Result [facility] [address] [place] [address] [phone] * (ABNORMAL) CBC auto differential (08/31/2025 10:17 AM EST) White Blood Count 7.2 4.8 - 10.8 X10*3/uL [facility] Red Blood Count 4.94 4.60 - 5.80 X10*6/uL [facility] Hemoglobin 14.5 14.0 - 18.0 g/dl [facility] Hematocrit 43.5 42.0 - 52.0 % [facility] Mean Corpuscular Volume 88.1 80.0 - 98.0 fL [facility] Mean Corpuscular Hemoglobin 29.4 27.0 - 33.0 pg [facility] Mean Corpuscular HGB Conc 33.3 31.0 - 36.0 g/dl [facility] Red Cell Distribution Width 12.2 11.0 - 16.0 % [facility] Platelet Count 177 160 - 400 X10*3/uL [facility] Mean Platelet Volume 10.8 9.4 - 12.4 fL [facility] Neutrophils Percent Auto 69.7 45 - 73 % [facility] Imm Gran Pct Auto 1.1(H) 0.0 - 0.4 % [facility] Lymphocytes Percent Auto 17.2(L) 20 - 40 % [facility] Monocytes Percent Auto 8.2 2 - 11 % [facility] Eosinophils Percent Auto 3.2 0 - 4 % [facility] Basophils Percent Auto 0.6 0 - 2 % [facility] NRBC Pct Auto 0.0 0.0 - 0.2 /100WBC [facility] Neutrophils Absolute Auto 5.0 2.0 - 8.3 x10*3/uL [facility] Imm Gran Abs Auto 0.08(H) 0.00 - 0.03 X10*3/uL [facility] Lymphocytes Absolute Auto 1.2 1.2 - 4.9 X10*3/uL [facility] Monocytes Absolute Auto 0.6 0.1 - 1.2 X10*3/uL [facility] Eosinophils Absolute Auto 0.2 0.0 - 0.4 X10*3/uL [facility] Basophils Absolute Auto 0.0 0.0 - 0.2 X10*3/uL [facility] NRBC Abs Auto 0.000 0.0 - 0.012 X10*3/uL [facility] 08/31/2025 10:1 7 AM EST 08/31/2025 10:21 AM EST us Generic External Data Provider LAB BLOOD ORDERAB LES Final Result [facility] [address] [place] [phone] * C-reactive Protein (08/31/2025 10:17 AM EST) C Reactive Protein 0.16 < or = 0.50 mg/dL [facility] 08/31/2025 10:1 7 AM EST 08/31/2025 10:21 AM EST us Generic External Data Provider LAB BLOOD ORDERAB LES Final Result [facility] [address] [place] [phone] * Lipase (08/31/2025 10:17 AM EST) Lipase 34 8 - 78 U/L [facility] 08/31/2025 10:1 7 AM EST 08/31/2025 10:21 AM EST us Generic External Data Provider LAB BLOOD ORDERAB LES Final Result Performing Organization Address [facility]/ZIP Co de Phone Number [facility] [address] [place] [address] [phone] * (ABNORMAL) Comprehensive Metabolic Panel (08/31/2025 10:17 AM EST) Sodium 140 135 - 145 mmol/L [facility] Potassium 4.4 3.3 - 5.1 mmol/L [facility] Chloride 103 96 - 108 mmol/L [facility] Carbon Dioxide 31(H) 22 - 29 mmol/L [facility] Anion Gap 10(L) 12 - 20 [facility] Urea Nitrogen (BUN) 18(H) 9 - 16 mg/dL [facility] Creatinine, Serum 1.00 0.5 - 1.4 mg/dL [facility] Creatinine Clr Calc Pharmacy 98.0 [facility] Comment:eGFR (calculated fro m the MDRD study equation) and eCrCl(calculated from the Cockcroft-Gault equation) are based ondifferent parameters and may not yield comparable results.If eCrCl result is absurd, please check patient'sheight/weight. Estimated Glomerular Filt Rate >60 [facility] Comment:Chronic Kidney Disea se: Estimated GFR < 60 mL/min/[id number] Kidney Disease: Estimated GFR < 15 mL/min/1.73m2 Glucose 106 60 - 115 mg/dL [facility] Calcium 9.5 8.4 - 10.2 mg/dL [facility] Bilirubin, Total 0.4 0.0 - 1.0 mg/dL [facility] Aspartate Amino Transferase 30 5 - 37 U/L [facility] Alanine Aminotransferase 36 0 - 40 U/L [facility] Total Protein 7.5 6.5 - 8.0 g/dL [facility] Albumin Level 4.5 3.5 - 5.0 g/dL [facility] Alkaline Phosphatase 95 39 - 117 U/L [facility] 08/31/2025 10:1 7 AM EST 08/31/2025 10:21 AM EST Generic External Data Provider LAB BLOOD ORDERAB LES Final Result Performing Organization Address City/State/[facility] Co de Phone Number [facility] [address] [place] [phone] * (ABNORMAL) POCT TOM-14 Urine Drug Screen (06/23/2025 1:14 PM EDT) Pathologist [facility] THC Negative Negative Cocaine Screen, Urine Negative Negative Opiate Screen, Urine Negative Negative Methamphetamine Screen Urine Negative Negative Amphetamine Screen, Urine Negative Negative Benzodiazepines Screen, Urine Negative Negative Barbiturate Screen, Urine Negative Negative Methadone Screen, Urine Negative Negative Buprenophine Screen, Urine Positive(A) Negative TCA, Urine Negative Negative MDMA Urine Negative Negative ng/mL Oxycodone Screen, Urine Negative Negative Phencyclidine (PCP), Urine Negative Negative Fentanyl, Urine Negative Negative Urine Urine specimen obtained by clean catch procedure / Unknown 06/23/2025 1:14 PM EDT Luis Moncada MD POINT OF CARE TEST ENTER/EDIT ORDERABLES Final Result * Referral to Orthopaedic Surgery (06/05/2025) James Clemons MD OUTPATIENT REFERRAL ORDERABLES F inal Result * Hepatitis C Antibody with Reflex to HCV, RNA, Quantitative, Real-Time PCR (04/30/2024 11:00 AM EDT) Hepatitis C Antibody Nonreactive Nonreactive [facility] Comment:Antibodies to HCV no t detected; does not exclude early acuteHCV infection. 04/30/2024 11:0 0 AM EDT 04/30/2024 1:09 PM EDT James Clemons MD LAB BLOOD ORDERABLES Final Resul t Performing Organization Address [facility]/ZIP Co de Phone Number [facility] [address] [place] [address] [phone] * HIV-1/2 Antigen and Antibodies, Fourth Generation, with Reflexes (04/30/2024 11:00 AM EDT) HIV AB/AG Nonreactive Nonreactive [facility] Comment:HIV-1 p24 Ag and/or HIV-1/HIV-2 Ab not detected.A test result that is nonreactive does not exclude thepossibility of exposure to or infection with HIV-1 and/orHIV-2. Nonreactive results in this assay for individualswith prior exposure to HIV-1 and/or HIV-2 may be due toantigen and antibody levels that are below the limit ofdetection of this assay.The [employer] HIV Ag/Ab Combo assay result andsupplemental assay results should be interpreted inconjunction with the patient's clinical presentation,history and other laboratory results. If the results areinconsistent with clinical evidence, additional testing issuggested to confirm the result. 04/30/2024 11:0 0 AM EDT 04/30/2024 1:09 PM EDT us James Clemons MD LAB BLOOD ORDERABLES Final Resul t Performing Organization Address City/[facility]/ZIP Co de Phone Number [facility] [address] [place] [address] [phone] * (ABNORMAL) Lipid Panel, Standard (09/20/2022 8:13 AM EST) Cholesterol, Total 190 <200 mg/dL [facility] HDL Cholesterol 36(L) > OR = 40 mg/dL [facility] Triglycerides 294(H) <150 mg/dL [facility] Comment: If a non-fasting specimen was collected, consider repeat triglyceride testing on a fasting specimen if clinically indicated. Jil et al. J. of Clin. Lipidol. 2015;9:129-169. LDL Cholesterol 115(H) mg/dL (calc) [facility] Comment: Reference range: <100 Desirable range <100 mg/dL for primary prevention; <70 mg/dL for patients with CHD or diabetic patients with > or = 2 CHD risk factors. LDL-C is now calculated using the Matt calculation, which is a validated novel method providing better accuracy than the Friedewald equation in the estimation of LDL-C. Narendra SS et al. YVON. 2013;310(19): 0263-4440 (http://education.Noomeo/faq/KEH209) Chol/HDLC Ratio 5.3(H) <5.0 (calc) [facility] Non-HDL Cholesterol 154(H) <130 mg/dL (calc) [facility] Comment: For patients with diabetes plus 1 major ASCVD risk factor, treating to a non-HDL-C goal of <100 mg/dL (LDL-C of <70 mg/dL) is considered a therapeutic option. 09/20/2022 8:13 AM EST 09/20/2022 8:14 AM EST Narrative [facility] - 09/21/2022 2:46 AM EST FASTING:YES FASTING: YES Bruno Name LAB BLOOD ORDERABLES Final Resul t [facility] [address] [facility], [place] [address] [facility] [address] [facility], ([address]) [place] [address] * Hm Colonoscopy (11/11/2021 10:35 AM EST) Colonoscopy Normal Normal Narrative Olga Vines - 11/11/2021 10:35 AM EST Recommended 5 year follow up ( ) Historical Provider HEALTH MAINTENANCE Final Result from Last 3 Months or Most Recently Relevant to Health Maintenance Insurance [facility] MCR ADV [facility] DENTAL - [facility] Care Teams Product Marketing Coordinator Relationship Specialty Start Date End Date Name, MD Bruno [address] [place] [phone] PCP - General Family Medicine 11/02/15
--- OUTSIDE RECORDS SUMMARY | 2025-08-31 13:38 | XMS_ITS | Encounter Summary ---
Author Organization [employer] Address 75 [facility] 7t [place] [address] Care Team Providers Care Maintenance Leader Name Role Phone Name, Bruno BELTRAN Primary Care Provider [phone] Reason for Visit * Reason Comments Med Refill Encounter Details Date Type Department Care Team ([facility] st Contact Info) Description 02/26/2024 Refill [facility] [address] [place], [place] [phone] James Clemons MD [address] [place], [place] [phone] Uncomplicated opioid dependence (CMS/HCC) Social History Tobacco Use Types Packs/Day Years Used Date Smoking Tobacco: Never Smokeless Tobacco: Never Alcohol Use Standard Drinks/Week Comments Not Currently 0 (1 standard drink = 0.6 oz pur e alcohol) Depression Answer Date Recorded Patient Health Questionnaire-9 Score 4 01/16/2023 Housing Stability Answer Date Recorded What is your housing situation today? I have pavan souza 07/06/[address] you li ve. Do you have problems with any of the following? None of the above 07/06/2023 Food Insecurity Answer Date Recorded Within the past 12 months, y ou worried that your food would run out before you got money to buy more: Never True 07/06/2023 Within the past 12 months,th e food you bought just didn't last and you didn't have enough money to get more: Never True Transportation Answer Date Recorded In the past 12 months, has l ack of transportation kept you from medical appts, meetings, work or from getting things needed for daily living? No 07/06/2023 Utilities Answer Date Recorded In the past 12 months, has t he electric, gas, oil or water company threatened to shut off services in your home? No 07/06/2023 Depression Answer Date Recorded Patient Health Questionnaire-2 Score 2 01/16/2023 Sex and Gender Information Value Date Recorded Sex Assigned at Male 07/10/2022 10:24 AM EDT Legal Sex Male 10:24 AM EDT Gender Identity Male 07/10/2022 10:24 AM EDT Sexual Orientation Straight 07/10/2022 10 :24 AM EDT documented as of this encounter Plan of Treatment Upcoming Encounters Date Type Department Care Team (Late st Contact Info) Description 09/15/2025 1:15 PM EST Office Visit [facility] [address] [place] [address] [phone] James Clemons MD [address] [place] [address] 09/23/2025 2:30 PM EST Office Visit [facility] ADULT DENTAL [address] [place] [address] 28081 Alex Webber DDS [address] [place] [address] 10/19/2025 11:15 AM EST Office Visit [facility] MED[facility] [address] [place] [address] Bruno Berry MD [address] [place] [address] 7[address] documented as of this encounter Visit Diagnoses Diagnosis Uncomplicated opioid dependence (CMS/HCC) (HCC) documented in this encounter Additional Health Concerns Assessment Noted Time PHQ-9 Depression Total Score: 4 01/17/20 23 2:36 PM EDT documented as of this encounter Care Teams Maintenance Leader Relationship Specialty Start Date End Date NameBruno MD [address] [place] [address]17 PCP - General Family Medicine 11/02/15 documented as of this encounter
--- OUTSIDE RECORDS SUMMARY | 2025-08-31 13:38 | XMS_ITS | Encounter Summary ---
Author Organization [employer] Address [address] [facility] [place] [facility] [address] 7[address] [place] [address] Care Team Providers Care Anti Tank Missileman Name Role Phone Name, Bruno BELTRAN Primary Care Provider [phone] Reason for Visit * Reason Comments Med Refill Encounter Details Date Type Department Care Team (Late st Contact Info) Description 12/03/[address] [facility]S [address] [place], [place] [phone] Name, MD Bruno [address] [facility] [place], [place] [phone] Right knee pain, unspecified chronicity Social History [...] Recorded Patient Health Questionnaire-2 Score 2 01/16/2023 Internet Access Answer Date Recorded Internet Access [...] Description 09/15/2025 1:15 PM EST Office Visit [facility] MEDICINE [address] [place] [address] James Clemons MD [address] [place] [address] 09/23/2025 2:30 PM EST Office Visit [facility] ADULT DENTAL [address] [place] [address] Alex Webber DDS [address] [place] [address] 922[address] 10/19/2025 11:15 AM EST Office Visit [facility] MED[facility] [address] [place] [address] Bruno Berry MD [address] [place] [address] documented as of this encounter Visit Diagnoses Diagnosis Right knee pain, unspecified chronicity documented in this encounter Additional Health Concerns Assessment Noted Time PHQ-9 Depression Total Score: 4 01/17/20 23 2:36 PM EDT documented as of this encounter Care Teams Anti Tank Missileman Relationship Specialty Start Date End Date Bruno Berry MD [address] [place] [address] PCP - General Family Medicine 11/02/15 documented as of this encounter
--- OUTSIDE RECORDS SUMMARY | 2025-08-31 13:38 | XMS_ITS | Encounter Summary ---
Author Organization [employer] Address 75 [facility] 7t [place] [address] Care Team Providers Care Shipping And Receiving Associate Name Role Phone Name, Bruno BELTRAN Primary Care Provider [phone] Encounter Details Date Type Department Care Team (Latest Contact Info) Description 10/27/2021 Abstract [facility] Dental, Provider, DDS Social History Tobacco Use Types Packs/Day Years Used Date Smoking Tobacco: Never Assessed Sex and Gender Information Value Date Recorded Sex Assigned at Male 07/10/2022 10:24 AM EDT Legal Sex Male 10:24 AM EDT Gender Identity Male 07/10/2022 10:24 AM EDT Sexual Orientation Straight 07/10/2022 10 :24 AM EDT documented as of this encounter Plan of Treatment Upcoming Encounters Date Type Department Care Team (Late st Contact Info) Description 09/15/2025 1:15 PM EST Office Visit [facility] [address] [place] [address] 28784 James Clemons MD [address] [place] [address] 423[address] 09/23/2025 2:30 PM EST Office Visit [facility] AD[facility] [address] [place] [address] 412[address] Alex Webber DDKj [address] [place] [address] 114[address] 10/19/2025 11:15 AM EST Office Visit [facility] [address] [place] [phone] Jamal, MD Bruno [address] [place] [address] documented as of this encounter Visit Diagnoses Not on filedocumented in this encounter Care Teams Shipping And Receiving Associate Relationship Specialty Start Date End Date Name, MD Bruno [address] [place] [address] PCP - General Family Medicine 11/02/15 documented as of this encounter
--- OUTSIDE RECORDS SUMMARY | 2025-08-31 13:38 | XMS_ITS | Encounter Summary ---
Author Organization [employer] Address 75 [facility] 7t [place] [address] Care Team Providers Care Development Specialist Name Role Phone Name, Bruno BELTRAN Primary Care Provider [phone] Encounter Details Date Type Department Care Team (Late Contact Info) Description 02/01/2023 Abstract [facility] [address] [place] [address] [phone] Name, MD Bruno [address] [place] [address] [phone] Social History Tobacco Use Types Packs/Day Years Used Date Smoking Tobacco: Never Smokeless Tobacco: Never Alcohol Use Standard Drinks/Week Comments Not Currently 0 (1 standard drink = 0.6 oz pur e alcohol) Depression Answer Date Recorded Patient Health Questionnaire-9 Score 4 01/16/2023 Depression Answer Date Recorded Patient Health Questionnaire-2 Score 2 01/16/2023 Sex and Gender Information Value Date Recorded Sex Assigned at Male 07/10/2022 10:24 AM EDT Legal Sex Male 10:24 AM EDT Gender Identity Male 07/10/2022 10:24 AM EDT Sexual Orientation Straight 07/10/2022 10 :24 AM EDT COVID-19 Exposure Response Date Recorded In the last 10 days, have yo u been in contact with someone who was confirmed or suspected to have Coronavirus/COVID-19? No / Unsure 02/02/2023 11:02 AM EDT documented as of this encounter Plan of Treatment Upcoming Encounters Date Type Department Care Team (Late Contact Info) Description 09/15/2025 1:15 PM EST Office Visit [facility] [address] [place] [address] [phone] James Clemons MD [address] [place] [address] [phone] 09/23/2025 2:30 PM EST Office Visit [facility] ADULT DENTAL [address] [place], [place] [phone] Alex Webber DDS [address] [place] [address] 10/19/2025 11:15 AM EST Office Visit [facility] [address] [place] [address] NameBruno MD [address] [place], [place] [phone] documented as of this encounter Procedures Procedure Name Priority Date/Time Associated Diagnosis Comments HM COLONOSCOPY Routine 11/11/2021 10:35 AM EST documented in this encounter Results * Hm Colonoscopy (11/11/2021 10:35 AM EST) Colonoscopy Normal Normal Narrative JasmynOlga hampton - 11/11/2021 10:35 AM EST Recommended 5 year follow up ( ) us Historical Provider HEALTH MAINTENANCE Final Result documented in this encounter Visit Diagnoses Not on filedocumented in this encounter Additional Health Concerns Assessment Noted Time PHQ-9 Depression Total Score: 4 01/17/20 23 2:36 PM EDT documented as of this encounter Care Teams Development Specialist Relationship Specialty Start Date End Date Name, MD Bruno [address] [place] [place] [address] [phone] PCP - General Family Medicine 11/02/15 documented as of this encounter
--- OUTSIDE RECORDS SUMMARY | 2025-08-31 13:38 | XMS_ITS | Encounter Summary ---
Author Organization [employer] Address 75 [facility] 7t [place] [address] Care Team Providers Care Intervention Nurse Name Role Phone Name, Bruno BELTRAN Primary Care Provider [phone] Encounter Details Date Type Department Care Team (Latest Contact Info) Description 12/07/2020 Abstract [facility] CONVERSION[facility] Dental, Provider, DDS Social History Tobacco [...] Description 09/15/2025 1:15 PM EST Office Visit [facility] [address] [place] [address] James Clemons MD [address] [place] [address] 09/23/2025 2:30 PM EST Office Visit [facility] ADULT DENTAL [address] [place] [address] 294[address] Alex Webber DDS [address] [place] [address] 10/19/2025 11:15 AM EST Office Visit [facility] [address] [place] [address] 08689 Jamal, MD Bruno [address] [place] [address] 6[address] documented as of this encounter Visit Diagnoses Not on filedocumented in this encounter Care Teams Intervention Nurse Relationship Specialty Start Date End Date Name, MD Bruno [address] [place] [address] PCP - General Family Medicine 11/02/15 documented as of this encounter
--- OUTSIDE RECORDS SUMMARY | 2025-08-31 13:38 | XMS_ITS | Encounter Summary ---
Author Organization [employer] Address [address] [facility] [address] 7t [place] [address] Care Team Providers Care Certified Hand Therapist Name Role Phone Name, Bruno BELTRAN Primary Care Provider [phone] Encounter Details Date Type Department Care Team (Late st Contact Info) Description 11/15/2023 Orders Only [facility] [address] [place], [place] [phone] Karina Shrestha RN Uncomplicated opioid dependence (CMS/HCC) Social History Tobacco [...] Description 09/15/2025 1:15 PM EST Office Visit [facility] MED[facility] [address] [place] [address] 97208 James Clemons MD [address] [place] [address] 09/23/2025 2:30 PM EST Office Visit [facility] ADULT DENTAL [address] [place] [address] 93391 Alex Webber DDS [address] [place] [address] 10/19/2025 11:15 AM EST Office Visit [facility] MED[facility] [address] [place] [address] [phone] Name, MD Bruno [address] [place] [address] Scheduled Orders Name Type Priority Associated Diagnoses Orde r Schedule Hepatic Function Panel Lab Routine Uncomplicated opioid dependence (CMS/HCC) Expected: 11/15/2023 (Approximate), Expires: 11/14/2024 Hepatitis C Antibody with Reflex to HCV, RNA, Quantitative, Real-Time PCR Lab Routine Uncomplicated opioid dependence (CMS/HCC) Expected: 11/15/2023 (Approximate), Expires: 11/14/2024 HIV-1/2 Antigen and Antibodies, Fourth Generation, with Reflexes Lab Routine Uncomplicated opioid dependence (CMS/HCC) Expected: 11/15/2023 (Approximate), Expires: 11/14/2024 Syphilis Screen Lab Routine Uncomplicated opioid dependence (CMS/HCC) Expected: 11/15/2023 (Approximate), Expires: 11/14/2024 T-SPOT .TB Lab Routine Uncomplicated opioid dependence (CMS/HCC) Expected: 11/15/2023 (Approximate), Expires: 11/14/2024 documented as of this encounter Visit Diagnoses Diagnosis Uncomplicated opioid dependence (CMS/HCC) (HCC) documented in this encounter Additional Health Concerns Assessment Noted Time PHQ-9 Depression Total Score: 4 01/17/20 23 2:36 PM EDT documented as of this encounter Care Teams Certified Hand Therapist Relationship Specialty Start Date End Date Name, MD Bruno [address] [place] [address] PCP - General Family Medicine 11/02/15 documented as of this encounter
--- OUTSIDE RECORDS SUMMARY | 2025-08-31 13:38 | XMS_ITS | Encounter Summary ---
Author Organization [employer] Address 75 [facility] 7t [place] [address] Care Team Providers Care Service Writer Advisor Name Role Phone Name, Bruno BELTRAN Primary Care Provider [phone] Encounter Details Date Type Department Care Team (Latest Contact Info) Description 09/24/2019 Abstract [facility] CONVERSION[facility] Dental, Provider, DDS Social History [...] Description 09/15/2025 1:15 PM EST Office Visit [facility] MEDICINE [address] [place] [address] 34481 James Clemons MD [address] [place] [address] 49525 09/23/2025 2:30 PM EST Office Visit [facility] ADULT DENTAL [address] [place] [address] 79681 Alex Webber DDS [address] [place] [address] 43881 10/19/2025 11:15 AM EST Office Visit [facility] MEDICINE [address] [place] [address] 38004 Jamal, MD Bruno [address] [place] [address] 17070 documented as of this encounter Visit Diagnoses Not on filedocumented in this encounter Care Teams Service Writer Advisor Relationship Specialty Start Date End Date Name, MD Bruno [address] [place] [address] PCP - General Family Medicine 11/02/15 documented as of this encounter
--- OUTSIDE RECORDS SUMMARY | 2025-08-31 13:38 | XMS_ITS | Encounter Summary ---
Author Organization [employer] Address 75 [facility] 7t [place] [address] Care Team Providers Care Immigration Officer Name Role Phone Name, Bruno BELTRAN Primary Care Provider [phone] Reason for Visit * Reason Comments Med Refill Encounter Details Date Type Department Care Team ([facility] st Contact Info) Description 11/06/2023 Refill [facility] MEDICINE [address] [place], [place] [phone] James Clemons MD [address] [place], [place] [phone] Uncomplicated opioid dependence (CMS/HCC) Social History Tobacco [...] Description 09/15/2025 1:15 PM EST Office Visit [facility] MEDICINE [address] [place] [address] James Clemons MD [address] [place] [address] 09/23/2025 2:30 PM EST Office Visit [facility] ADULT DENTAL [address] [place] [address] Alex Webber DDS [address] [place] [address] 10/19/2025 11:15 AM EST Office Visit [facility] MED[facility] [address] [place] [address] Bruno Berry MD [address] [place] [address] 9[address] documented as of this encounter Visit Diagnoses Diagnosis Uncomplicated opioid dependence (CMS/HCC) (HCC) documented in this encounter Additional Health Concerns Assessment Noted Time PHQ-9 Depression Total Score: 4 01/17/20 23 2:36 PM EDT documented as of this encounter Care Teams Immigration Officer Relationship Specialty Start Date End Date NameBruno MD [address] [place] [address] PCP - General Family Medicine 11/02/15 documented as of this encounter
--- OUTSIDE RECORDS SUMMARY | 2025-08-31 13:38 | XMS_ITS | Encounter Summary ---
Author Organization [employer] Address 75 [facility] 7t [place] [address] Care Team Providers Care Broadcast Field Supervisor Name Role Phone Name, Bruno BELTRAN Primary Care Provider [phone] Reason for Visit * Reason Comments Med Refill Encounter Details Date Type Department Care Team (Late st Contact Info) Description 05/01/2023 Refill [facility] [address] [place] [address] 12804 Shai Clarke MD [address] [place] [address] [phone] Pain in throat Social History Tobacco Use Types Packs/Day Years [...] Description 09/15/2025 1:15 PM EST Office Visit [facility] [address] [place] [address] 57149 James Clemons MD [address] [place] [phone] 09/23/2025 2:30 PM EST Office Visit [facility] ADULT DENTAL [address] [place] [address] Alex Webber DDS [address] [place], [place] [phone] 10/19/2025 11:15 AM EST Office Visit [facility] [address] [place] [address] Name, MD Bruno [address] [place] [address] documented as of this encounter Visit Diagnoses Diagnosis Pain in throat Throat pain documented in this encounter Additional Health Concerns Assessment Noted Time PHQ-9 Depression Total Score: 4 01/17/20 23 2:36 PM EDT documented as of this encounter Care Teams Broadcast Field Supervisor Relationship Specialty Start Date End Date Name, MD Bruno [address] [place] [address] 69361 PCP - General Family Medicine 11/02/15 documented as of this encounter
--- OUTSIDE RECORDS SUMMARY | 2025-08-31 13:38 | XMS_ITS | Encounter Summary ---
Author Organization [employer] Address [address] [facility] [address] 7t [place] [address] Care Team Providers Care Animal Rehabilitator Name Role Phone Name, Bruno BELTRAN Primary Care Provider [phone] Encounter Details Date Type Department Care Team ([facility] st Contact Info) Description 01/08/2024 Orders Only [facility] [address] [place], [place] [phone] James Clemons MD [address] [place], [place] [phone] Social History Tobacco Use Types Packs/Day Years Used Date Smoking Tobacco: Never Smokeless Tobacco: Never Alcohol Use Standard Drinks/Week Comments Not Currently 0 (1 standard drink = 0.6 oz pur e alcohol) Depression Answer Date Recorded Patient Health Questionnaire-9 Score 4 01/16/2023 Housing Stability Answer Date Recorded What is your housing situation today? I have pavanperez souza 07/06/[address] you [...] Description 09/15/2025 1:15 PM EST Office Visit [facility] [address] [place] [address]67 James Clemons MD [address] [place] [address] 09/23/2025 2:30 PM EST Office Visit [facility] ADULT DENTAL [address] [place] [address] 06895 Alex Webber DDS [address] [place] [address] 10/19/2025 11:15 AM EST Office Visit [facility] [address] [place] [address] 13168 Bruno Berry MD [address] [place] [address] 599[address] documented as of this encounter Visit Diagnoses Not on filedocumented in this encounter Additional Health Concerns Assessment Noted Time PHQ-9 Depression Total Score: 4 01/17/20 23 2:36 PM EDT documented as of this encounter Care Teams Animal Rehabilitator Relationship Specialty Start Date End Date NameBruno MD [address] [place] [address] PCP - General Family Medicine 11/02/15 documented as of this encounter
--- OUTSIDE RECORDS SUMMARY | 2025-08-31 13:38 | XMS_ITS | Encounter Summary ---
Author Organization [employer] Address 75 [facility] 7t [place] [address] Care Team Providers Care Track Template Maker Name Role Phone Name, Bruno BELTRAN Primary Care Provider [phone] Encounter Details Date Type Department Care Team (Late Contact Info) Description 02/01/2023 Abstract [facility] MEDICINE [address] [place] [address] [phone] Name, MD Bruno [address] [place] [address] [phone] Social History Tobacco Use Types Packs/Day Years [...] Description 09/15/2025 1:15 PM EST Office Visit [facility] MEDICINE [address] [place] [address] [phone] James Clemons MD [address] [place] [address] [phone] 09/23/2025 2:30 PM EST Office Visit [facility] ADULT DENTAL [address] [place] [address] Alex Webber DDS [address] [place] [address] 10/19/2025 11:15 AM EST Office Visit [facility] MEDICINE [address] [place] [phone] Name, MD Bruno [address] [place] [address] documented as of this encounter Visit Diagnoses Not on filedocumented in this encounter Additional Health Concerns Assessment Noted Time PHQ-9 Depression Total Score: 4 01/17/20 23 2:36 PM EDT documented as of this encounter Care Teams Track Template Maker Relationship Specialty Start Date End Date Name, MD Bruno [address] [place] [address] 237[address] PCP - General Family Medicine 11/02/15 documented as of this encounter
--- OUTSIDE RECORDS SUMMARY | 2025-08-31 13:38 | XMS_ITS | Encounter Summary ---
Author Organization [employer] Address 75 [facility] 7t [place] [address] Care Team Providers Care It Manager Name Role Phone Name, Bruno BELTRAN Primary Care Provider [phone] Encounter Details Date Type Department Care Team (Latest Contact Info) Description 07/24/2022 Abstract [facility] CONVERSIONS Dental, Provider, DDS Social History [...] Description 09/15/2025 1:15 PM EST Office Visit [facility] MEDICINE [address] [place] [phone] James Clemons MD [address] [place] [address] 09/23/2025 2:30 PM EST Office Visit [facility] ADULT DENTAL [address] [place] [address] Alex Webber DDS [address] [place] [address] 10/19/2025 11:15 AM EST Office Visit [facility] MEDICINE [address] [place] [address] Jamal, MD Bruno [address] [place] [address] 31902 documented as of this encounter Visit Diagnoses Not on filedocumented in this encounter Care Teams It Manager Relationship Specialty Start Date End Date Name, MD Bruno [address] [place] [address] PCP - General Family Medicine 11/02/15 documented as of this encounter
--- OUTSIDE RECORDS SUMMARY | 2025-08-31 13:38 | XMS_ITS | Encounter Summary ---
Author Organization [employer] Address [address] [facility] [address] 7t [place] [address] Care Team Providers Care Mobile Device Developer Name Role Phone Name, Bruno BELTRAN Primary Care Provider [phone] Encounter Details Date Type Department Care Team ([facility] st Contact Info) Description 03/20/2025 Orders Only [facility] MEDICINE [address] [place], [place] [phone] Wendy Dwyer MD [address] [place], [place] [phone] Social History Tobacco Use Types Packs/Day Years [...] Description 09/15/2025 1:15 PM EST Office Visit [facility] MEDICINE [address] [place] [phone] James Clemons MD [address] [place] [phone] 09/23/2025 2:30 PM EST Office Visit [facility] ADULT DENTAL [address] [place] [phone] Alex Webber DDS [address] [place] [address] [phone] 10/19/2025 11:15 AM EST Office Visit [facility] MEDICINE [address] [place] [phone] NameBruno MD [address] [place] [address] 476[address] documented as of this encounter Visit Diagnoses Not on filedocumented in this encounter Additional Health Concerns Assessment Noted Time PHQ-9 Depression Total Score: 2 02/04/20 25 1:17 PM EDT documented as of this encounter Care Teams Mobile Device Developer Relationship Specialty Start Date End Date Bruno Berry MD [address] [place] [phone] PCP - General Family Medicine 11/02/15 documented as of this encounter
--- OUTSIDE RECORDS SUMMARY | 2025-08-31 13:38 | XMS_ITS | Encounter Summary ---
Author Organization [employer] Address 75 [facility] 7t [place] [address] Care Team Providers Care Refractory Manager Name Role Phone Name, Bruno BELTRAN Primary Care Provider [phone] Encounter Details Date Type Department Care Team (Late st Contact Info) Description 06/12/2023 Orders Only [facility] MEDICINE [address] [place] [phone] Karina Shrestha, RN Social History Tobacco Use Types Packs/Day Years [...] 1:15 PM EST Office Visit [facility] MEDICINE [address] [place] [address] [phone] James Clemons MD [address] [place] [address] 09/23/2025 2:30 PM EST Office Visit [facility] ADULT DENTAL [address] [place] [address] Alex Webber DDS [address] [place] [address] 10/19/2025 11:15 AM EST Office Visit [facility] MEDICINE [address] [place] [address] Name, MD Bruno [place] [place] [address] documented as of this encounter Visit Diagnoses Not on filedocumented in this encounter Additional Health Concerns Assessment Noted Time PHQ-9 Depression Total Score: 4 01/17/20 23 2:36 PM EDT documented as of this encounter Care Teams Refractory Manager Relationship Specialty Start Date End Date Name, MD Bruno [place] [place] [address] PCP - General Family Medicine 11/02/15 documented as of this encounter
--- OUTSIDE RECORDS SUMMARY | 2025-08-31 13:38 | XMS_ITS | Encounter Summary ---
Author Organization [employer] Address [address] [facility] [address] 7t [place] [address] Care Team Providers Care Transfer And Pumphouse Operator Name Role Phone Name, Bruno BELTRAN Primary Care Provider [phone] Encounter Details Date Type Department Care Team (Late st Contact Info) Description 08/31/2025 Orders Only GENERIC EXTERNAL DATA DEPARTMENT Provider, Generic External Data Social History Tobacco Use Types Packs/Day Years [...] Description 09/15/2025 1:15 PM EST Office Visit [facility] MEDICINE [address] [place] [address] James Clemons MD [address] [place] [address] 09/23/2025 2:30 PM EST Office Visit [facility] ADULT DENTAL [address] [place] [address] Alex Webber DDS [address] [place] [address] 10/19/2025 11:15 AM EST Office Visit [facility] MEDICINE [address] [place] [address] Name, MD Bruno [address] [place] [address] documented as of this encounter Procedures Procedure Name Priority Date/Time Associated Diagnosis Comments US ABDOMEN LIMITED Routine 08/31/2025 11 :33 AM EST URINALYSIS WITH REFLEX MICROSCOPIC Routine 08/31/2025 11:14 AM EST CBC WITH AUTO DIFFERENTIAL Routine 08/31/2025 10:17 AM EST C-REACTIVE PROTEIN Routine 08/31/2025 10 :17 AM EST LIPASE Routine 08/31/2025 10:17 AM EST COMPREHENSIVE METABOLIC PANEL Routine 08/31/2025 10:17 AM EST documented in this encounter Results * US Abdomen Limited (08/31/2025 11:33 AM EST) Anatomical Region Laterality Modality Abdomen Ultrasound 08/31/2025 11:3 3 AM EST Narrative 08/31/2025 12:13 PM EST [address] [address] Ultrasound Report Signed Patient: Jose Carlos Gay MR#: [id number] : 1975 Acct:[id number] Age/Sex: 50 / M ADM Date: 08/31/25 Loc: HO.ED Attending Dr: Ordering Physician: Shaye Avery DO Date of Service: 08/31/25 Procedure(s): US abdomen limited Accession Number(s): [id number] cc: Shaye Avery DO; Name,Bruno BELTRAN Reason [...] 08/31/25 1208 DD/ 1133 TD/TT: 08/31/25 1137 Tower Control Operator: Procedure Note Donotuseinterpreter, Image - 08/31/[address] [address] Ultrasound Report Signed Patient: Jose Carlos Gay LMR#: [id number] : 1975Acct:[id number] Age/Sex: 50 / MADM Date: 08/31/25 Loc: HO.ED Attending Dr: Ordering Physician: Shaye Avery DO Date of Service: 08/31/25 Procedure(s): US abdomen limited Accession Number(s): [id number] cc: Shaye Avery DO; Name,Bruno BELTRAN Reason [...] 08/31/25 1208 DD/ 1133 TD/TT: 08/31/25 1137 Tower Control Operator: DANTE [facility] External Provider IMG US PROCEDURES Edited Result - Final * Urinalysis w/reflex microscopic (08/31/2025 11:14 AM EST) Color Urine Yellow [facility] Appearance Urine Clear [facility] PH 8.5 5.0 - 9.0 [facility] Glucose Urine UA Negative Negative mg/dL [facility] Urine Blood Negative Negative [facility] Specific [place] - Urine <=1.005 1.005 - 1.025 [facility] Urine Protein Negative Neg-Trace mg/dL [facility] Urine Ketones Negative Negative mg/dL [facility] Nitrite Urine Negative Negative [facility] Leukocyte Esterase Urine Negative Negative [facility] 08/31/2025 11:1 4 AM EST 08/31/2025 11:17 AM EST Narrative [facility] - 08/31/2025 11:26 AM EST [id number], Clean Catch us Generic External Data Provider LAB URINE ORDERAB LES Final Result Performing Organization Address [facility] Co de Phone Number [facility] [address] [place] [phone] * C-reactive Protein (08/31/2025 10:17 AM EST) C Reactive Protein 0.16 < or = 0.50 mg/dL [facility] 08/31/2025 10:1 7 AM EST 08/31/2025 10:21 AM EST us Generic External Data Provider LAB BLOOD ORDERAB LES Final Result Performing Organization Address City/[facility] Co de Phone Number [facility] [address] [place] [phone] * Lipase (08/31/2025 10:17 AM EST) Lipase 34 8 - 78 U/L [facility] 08/31/2025 10:1 7 AM EST 08/31/2025 10:21 AM EST us Generic External Data Provider LAB BLOOD ORDERAB LES Final Result Performing Organization Address [facility]/State/ZIP Co de Phone Number [facility] [address] [place] [address] [phone] * (ABNORMAL) Comprehensive Metabolic Panel (08/31/2025 10:17 AM EST) Sodium 140 135 - 145 mmol/L [facility] Potassium 4.4 3.3 - 5.1 mmol/L [facility] Chloride 103 96 - 108 mmol/L [facility] Carbon Dioxide 31(H) 22 - 29 mmol/L [facility] Anion Gap 10(L) 12 - 20 [facility] Urea Nitrogen (BUN) 18(H) 9 - 16 mg/dL [facility] Creatinine, Serum 1.00 0.5 - 1.4 mg/dL [facility] Creatinine Clr Calc Pharmacy 98.0 [facility] Comment:eGFR (calculated fro m the MDRD study equation) and eCrCl(calculated from the Cockcroft-Gault equation) are based ondifferent parameters and may not yield comparable results.If eCrCl result is absurd, please check patient'sheight/weight. Estimated Glomerular Filt Rate >60 [facility] Comment:Chronic Kidney Disea se: Estimated GFR < 60 mL/min/1.90c0Awhnwo Kidney Disease: Estimated GFR < 15 mL/min/1.73m2 Glucose 106 60 - 115 mg/dL [facility] Calcium 9.5 8.4 - 10.2 mg/dL [facility] Bilirubin, Total 0.4 0.0 - 1.0 mg/dL [facility] Aspartate Amino Transferase 30 5 - 37 U/L [facility] Alanine Aminotransferase 36 0 - 40 U/L [facility] Total Protein 7.5 6.5 - 8.0 g/dL [facility] Albumin Level 4.5 3.5 - 5.0 g/dL [facility] Alkaline Phosphatase 95 39 - 117 U/L [facility] 08/31/2025 10:1 7 AM EST 08/31/2025 10:21 AM EST us Generic External Data Provider LAB BLOOD ORDERAB LES Final Result [facility] [address] [place], [place] [phone] * (ABNORMAL) CBC auto differential (08/31/2025 10:17 AM EST) White Blood Count 7.2 4.8 - 10.8 X10*3/uL [facility] Red Blood Count 4.94 4.60 - 5.80 X10*6/uL [facility] Hemoglobin 14.5 14.0 - 18.0 g/dl [facility] Hematocrit 43.5 42.0 - 52.0 % [facility] Mean Corpuscular Volume 88.1 80.0 - 98.0 fL [facility] Mean Corpuscular Hemoglobin 29.4 27.0 - 33.0 pg [facility] Mean Corpuscular HGB Conc 33.3 31.0 - 36.0 g/dl [facility] Red Cell Distribution Width 12.2 11.0 - 16.0 % [facility] Platelet Count 177 160 - 400 X10*3/uL [facility] Mean Platelet Volume 10.8 9.4 - 12.4 fL [facility] Neutrophils Percent Auto 69.7 45 - 73 % [facility] Imm Gran Pct Auto 1.1(H) 0.0 - 0.4 % [facility] Lymphocytes Percent Auto 17.2(L) 20 - 40 % [facility] Monocytes Percent Auto 8.2 2 - 11 % [facility] Eosinophils Percent Auto 3.2 0 - 4 % [facility] Basophils Percent Auto 0.6 0 - 2 % [facility] NRBC Pct Auto 0.0 0.0 - 0.2 /100WBC [facility] Neutrophils Absolute Auto 5.0 2.0 - 8.3 x10*3/uL [facility] Imm Gran Abs Auto 0.08(H) 0.00 - 0.03 X10*3/uL [facility] Lymphocytes Absolute Auto 1.2 1.2 - 4.9 X10*3/uL [facility] Monocytes Absolute Auto 0.6 0.1 - 1.2 X10*3/uL [facility] Eosinophils Absolute Auto 0.2 0.0 - 0.4 X10*3/uL [facility] Basophils Absolute Auto 0.0 0.0 - 0.2 X10*3/uL [facility] NRBC Abs Auto 0.000 0.0 - 0.012 X10*3/uL [facility] 08/31/2025 10:1 7 AM EST 08/31/2025 10:21 AM EST us Generic External Data Provider LAB BLOOD ORDERAB LES Final Result [facility] [address] [place] [address] [phone] documented in this encounter Visit Diagnoses Not on filedocumented in this encounter Additional Health Concerns Assessment Noted Time PHQ-9 Depression Total Score: 2 02/04/20 25 1:17 PM EDT documented as of this encounter Care Teams Transfer And Pumphouse Operator Relationship Specialty Start Date End Date Name, MD Bruno [address] [place] [address] PCP - General Family Medicine 11/02/15 documented as of this encounter
--- OUTSIDE RECORDS SUMMARY | 2025-08-31 13:38 | XMS_ITS | Patient Health Record ---
Author Organization [facility] Address [address] [place] [address] Care Team Providers Care Leather Cleaner Name Role Phone Name Bruno BELTRAN Primary Care Provider Yousuf Harden [phone] Allergies Allergen (clinical drug ingredient) Drug/Non Drug Allergy documented on EMR Reaction Allergy Type Onset Date Status MRI Contrast (uncoded) Unknown Allergy Active Reason For Referral No Information Medications Medication SIG (Take, Route, Frequency, Duration) Notes Start Date End Date Status Suboxone 8-2 MG Tablet Sublingual 1 tablet under the tongue and allow to dissolve Sublingual Once a day Active Docusate Sodium 100 MG Capsule 1 capsule as needed Orally Once a day; Duration: 30 day(s) Active Celecoxib 200 MG Capsule 1 capsule with food Orally Once a day; Duration: 30 day(s) Active Tylenol Arthritis Pain 650 M G Tablet Extended Release 2 tablets as needed Orally every 8 hrs Active Ventolin HFA 90 MCG/ACT Aero ileana Solution 1 puff as needed Inhalation every 4 hrs Active Pravastatin Sodium 40 MG Tablet 1 tablet Orally Once a day; Duration: 30 day(s) Active hydroCHLOROthiazide 25 MG Tablet 1 tablet in the morning Orally Once a day; Duration: 30 day(s) Active DULoxetine HCl 30 MG Capsule Delayed Release Particles 1 capsule Orally Once a day; Duration: 30 day(s) Active Omeprazole 40 MG Capsule Delayed Release 1 capsule 30 minutes before morning meal Orally Once a day; Duration: 30 day(s) Active Pregabalin 75 MG Capsule 1 capsule Orall y Twice a day Active MiraLax (colon prep) 17 GM/SCOOP Powder 238 Gm Bottle mixed with Gatorade or Crystal Light Orally begin at 5:00 p.m. the day before the procedure; Duration: 1 day 09/21/2021 Active traZODone HCl 50 MG Tablet 1 tablet at b edtime as needed Orally Once a day; Duration: 30 day(s) Active Dulcolax (colon prep) 5 MG Tablet Delayed Release take at 3:00 p.m and 7:00p.m. Orally two tablets twice a day for one day; Duration: 1 day 09/21/2021 Active Immunizations Vaccine Route Administration Date Status Comme nts Influenza Unknown 09/21/2021 Refused Social History Tobacco Use: Social History Observation Description Date Details (start date - stop date) Never Smoker NA - NA Social History Drugs/Alcohol: Social Info Question Answer Notes Alcohol Screen Did you have a drink containing alcohol in the past year? No Points 0 Interpretation Negative Tobacco Use: Social Info Question Answer Notes Tobacco Use/Smoking Patient is a nonsmoker Additional Details Category Social Info Options Details Miscellaneous: Marital status: Occupation: disability Section Notes: Nonsmoker; no alcohol Problems Problem Type SNOMED Code ICD Code Onset Dates Problem Status W/U Status Risk Notes Problem Screening for malignant neoplasm of colon (904718344) Encounter for screening for malignant neoplasm of colon (Z12.11) Active confirmed Problem Family history of polyp of colon (764538877) Family history of colonic polyps (Z83.71) Active confirmed Problem Esophageal reflux finding (775870894) Gastroesophageal reflux (K21.9) Active confirmed Problem Gastroesophageal reflux disease (710475979) Gastroesophageal reflux disease, unspecified whether esophagitis present (K21.9) Active confirmed Plan Of Treatment Pending Test Test Name Order Date Pathology 11/11/2021 Future Test Test Name Order Date UPPER GI ENDOSCOPY 09/21/2021 COLONOSCOPY 09/21/2021 Insurance Providers Payer Name Payer Address Payer Phone Subscriber Number Group Number Insured Name Patient Relationship to Insured Coverage Start Date Coverage End Date [facility] [address] [place] [phone] [id number] ELICIA HU Self - patient is the insured 0 MEDICARE OF [place] [address] [place] [address] [id number] ELICIA HU Self - patient is the insured Medical (General) History Medical History History ICD Code HTN Hyperlipidemia GERD--UGI at [facility]-never had an EGD Asthma Insomnia Arthritis Denies PR,DM,CVA,renal disease 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
--- OUTSIDE RECORDS SUMMARY | 2025-08-31 13:38 | XMS_ITS | Encounter Summary ---
Author Organization [employer] Address [address] [facility] 7t [place] [address] Care Team Providers Care Seamless Tube Drawer Name Role Phone Name, Bruno BELTRAN Primary Care Provider [phone] Reason for Visit * Reason Comments Med Refill Encounter Details Date Type Department Care Team ([facility] Contact Info) Description 03/30/2023 Refill [facility] MEDICINE [address] [place] [address] [phone] James Clemons MD [address] [place] [address] [phone] Uncomplicated opioid dependence (CMS/HCC) Social History Tobacco [...] suspected to have Coronavirus/COVID-19? No / Unsure 03/19/2023 12:36 PM EDT documented as of this encounter Plan of Treatment Upcoming Encounters Date Type Department Care Team ([facility] Contact Info) Description 09/15/2025 1:15 PM EST Office Visit [facility] MEDICINE [address] [place] [phone] James Clemons MD [address] [place] [address] 09/23/2025 2:30 PM EST Office Visit [facility] ADULT DENTAL [address] [place] [address] [phone] Alex Webber DDS [address] [place], [place] [phone] 10/19/2025 11:15 AM EST Office Visit [facility] MEDICINE [address] [place] [phone] Bruno Berry MD [address] [place] [address] [phone] documented as of this encounter Visit Diagnoses Diagnosis Uncomplicated opioid dependence (CMS/HCC) (HCC) documented in this encounter Additional Health Concerns Assessment Noted Time PHQ-9 Depression Total Score: 4 01/17/20 23 2:36 PM EDT documented as of this encounter Care Teams Seamless Tube Drawer Relationship Specialty Start Date End Date Bruno Berry MD [address] [place] [phone] PCP - General Family Medicine 11/02/15 documented as of this encounter
--- OUTSIDE RECORDS SUMMARY | 2025-08-31 13:38 | XMS_ITS | Encounter Summary ---
Author Organization [employer] Address [address] [facility] 7t [place] [address] Care Team Providers Care Wholesale Buyer Name Role Phone Name, Bruno BELTRAN Primary Care Provider [phone] Reason for Visit * Reason Comments Med Refill Encounter Details Date Type Department Care Team ([facility] st Contact Info) Description 06/17/2024 Refill [facility] MEDICINE [address] [place], [place] [phone] James Clemons MD [address] [place], [place] [phone] Uncomplicated opioid dependence (CMS/HCC) Social History Tobacco [...] Description 09/15/2025 1:15 PM EST Office Visit [facility] MEDICINE [address] [place] [phone] James Clemons MD [address] [place] [phone] 09/23/2025 2:30 PM EST Office Visit [facility] ADULT DENTAL [address] [place] [phone] Alex Webber DDS [address] [place] [address] 10/19/2025 11:15 AM EST Office Visit [facility] MEDICINE [address] [place] [phone] Bruno Berry MD [address] [place] [phone] documented as of this encounter Visit Diagnoses Diagnosis Uncomplicated opioid dependence (CMS/HCC) (HCC) documented in this encounter Additional Health Concerns Assessment Noted Time PHQ-9 Depression Total Score: 4 01/17/20 23 2:36 PM EDT documented as of this encounter Care Teams Wholesale Buyer Relationship Specialty Start Date End Date NameBruno MD [address] [place] [phone] PCP - General Family Medicine 11/02/15 documented as of this encounter
--- OUTSIDE RECORDS SUMMARY | 2025-08-31 13:38 | XMS_ITS | Encounter Summary ---
Author Organization [id number] Address [address] [facility] [address] [place] [address] Care Team Providers Care Gyroscopic Instrument Mechanic Name Role Phone Name, Bruno BELTRAN Primary Care Provider [phone] Reason for Visit * Reason Comments Med Refill Encounter Details Date Type Department Care Team ([facility] st Contact Info) Description 06/16/2025 Refill [facility] [address] [place], [place] [phone] James Clemons MD [address] [place], [place] [phone] Uncomplicated opioid dependence (CMS/HCC) (HCC) Social History Tobacco Use Types Packs/Day Years [...] Description 09/15/2025 1:15 PM EST Office Visit [facility] [address] [place] [phone] James Clemons MD [address] [place] [phone] 09/23/2025 2:30 PM EST Office Visit [facility] [address] [place] [phone] Alex Webber DDS [address] [place] [phone] 10/19/2025 11:15 AM EST Office Visit [facility] [address] [place] [phone] Bruno Berry MD [address] [place] [phone] documented as of this encounter Visit Diagnoses Diagnosis Uncomplicated opioid dependence (CMS/HCC) (HCC) documented in this encounter Additional Health Concerns Assessment Noted Time PHQ-9 Depression Total Score: 2 02/04/20 25 1:17 PM EDT documented as of this encounter Care Teams Gyroscopic Instrument Mechanic Relationship Specialty Start Date End Date Bruno Berry MD [address] [place] [phone] PCP - General Family Medicine 11/02/15 documented as of this encounter
== END 2025-08-31 12:29 | disposition home or self-care (01) ==
PROVIDERS: Physician Assistant; Emergency Provider Emergency Medicine; PCP Internal Medicine Geriatric Medicine
DX: R10.21 Pelvic and perineal pain right side (principal); R10.11 Right upper quadrant pain; I10 Essential (primary) hypertension; Z79.899 Other long term (current) drug therapy
CPT/HCPCS: 36415; 76705; 80053; 81003; 83690; 85025; 86140; 99284

== ENCOUNTER → 2025-08-31 10:50 | Outpatient (BNV) | payer OTHER, SELFPAY | PROVIDERS: Emergency Provider Emergency Medicine; PCP Internal Medicine Geriatric Medicine; Visit Provider Radiology Diagnostic Ultrasound | DX: R10.11 Right upper quadrant pain (principal) | CPT/HCPCS: 76705 ==